=== PATIENT | female | born 1945 | race Caucasian/White ===

== ENCOUNTER 2016-09-12 14:40 | Outpatient (CLI) | END 2016-09-12 14:41 | disposition home or self-care (01) ==

== ENCOUNTER 2016-11-08 13:39 | Outpatient (CLI) | payer MEDICARE, OTHER | END 2016-11-08 13:40 | disposition home or self-care (01) | DX: E11.9 Type 2 diabetes mellitus without complications (principal); I25.10 Atherosclerotic heart disease of native coronary artery without angina pectoris; I10 Essential (primary) hypertension ==

== ENCOUNTER 2017-02-10 07:26 | Outpatient (CLI) | payer MEDICARE, OTHER ==
[2017-02-10 11:22] LABS: BASOPHILS # (AUTO) 0.1 10^3/uL (0.0-0.1); BASOPHILS % (AUTO) 0.4 %; EOSINOPHILS # (AUTO) 0.4 10^3/uL (0.0-0.7); HCT - HEMATOCRIT 34.6 % (37.0-47.0); HGB - HEMOGLOBIN 11.1 g/dL (12.0-16.0); LYMPHOCYTES # (AUTO) 2.7 10^3/uL (1.5-3.5); LYMPHOCYTES % (AUTO) 22.2 %; MEAN CORPUSCULAR HEMOGLOBIN 26.4 pg (27.0-31.0); MEAN CORPUSCULAR HGB CONC 32.2 g/dL (32.0-36.0); MEAN CORPUSCULAR VOLUME 82.1 fL (81.0-99.0); MEAN PLATELET VOLUME 11.8 fL (7.9-10.8); MONOCYTES # (AUTO) 0.6 10^3/uL (0.0-1.0); MONOCYTES % (AUTO) 4.7 %; NEUTROPHILS # (AUTO) 8.4 10^3/uL (1.5-6.6); NEUTROPHILS % (AUTO) 69.7 %; RED BLOOD COUNT 4.22 10^6/uL (4.20-5.40)
[2017-02-10 11:39] LABS: ALBUMIN/GLOBULIN RATIO 1.1 (1.0-2.2); BILIRUBIN,TOTAL 0.5 mg/dL (0.2-1.0); BUN - BLOOD UREA NITROGEN 33 mg/dL (6-20); CALCIUM 9.6 mg/dL (8.5-10.3); CARBON DIOXIDE - CO2 28 mmol/L (21-32); CHLORIDE 102 mmol/L (101-111); CHOLESTEROL 178 mg/dL; CREATININE 1.2 mg/dL (0.4-1.0); GFR - MDRD 44 (>89); GLUCOSE 119 mg/dL (70-100); HDL CHOLESTEROL 45 mg/dL; LDL/HDL RATIO 2.3 (<4.4); POTASSIUM 3.8 mmol/L (3.5-5.0); SODIUM 138 mmol/L (135-145); TRIGLYCERIDES 143 mg/dL; VLDL CHOLESTEROL 29 mg/dL
[2017-02-10 11:46] LABS: HEMOGLOBIN A1C 0.54 g/dL
== END 2017-02-10 07:27 | disposition home or self-care (01) ==
LOC: LAB.F 07:26
PROVIDERS: ATTEND Family Medicine
DX: I25.10 Atherosclerotic heart disease of native coronary artery without angina pectoris (principal); E11.9 Type 2 diabetes mellitus without complications; E55.9 Vitamin D deficiency, unspecified; D64.9 Anemia, unspecified; E78.5 Hyperlipidemia, unspecified; I10 Essential (primary) hypertension
CPT/HCPCS: 36415; 80053; 80061; 82043; 82306; 83036; 84443; 85025

== ENCOUNTER 2017-07-24 14:57 | Outpatient (CLI) | payer MEDICARE, OTHER ==
--- NOTE | 2017-07-28 14:02 | Mammography Report ---
DIGITAL SCREENING MAMMOGRAM: 07/24/2017 CLINICAL INDICATION: A 72-year-old with history of benign right breast biopsy, for screening. COMPARISON: 02/2015, 08/2012, 08/2011, 07/2010. TECHNIQUE: Routine CC and MLO projections were obtained of the breasts. FINDINGS: The breasts again demonstrate scattered fibroglandular densities bilaterally. Coarse and p unctate, typically benign calcifications are present. No suspicious masses, clustered microcalcificat ions, or regions of architectural distortion are identified. IMPRESSION: BENIGN FINDINGS. RECOMMENDATION: ROUTINE ANNUAL SCREENING UNLESS OTHERWISE CLINICALLY INDICATED. BIRADS CATEGORY 2-BENIGN FINDINGS. STANDARD QUALIFYING STATEMENTS 1. This examination was reviewed with the aid of Computer-Aided Detection (CAD). 2. A negative or benign imaging report should not delay biopsy if clinically suspicious findings are present. Consider surgical consultation if warranted. More than 5% of cancers are not identified by i maging. 3. Dense breasts may obscure an underlying neoplasm. JOB #: [id number] EXT JOB #:[id number]
== END 2017-07-24 14:58 | disposition home or self-care (01) ==
LOC: DI 14:57
PROVIDERS: ATTEND Family Medicine
DX: Z12.31 Encounter for screening mammogram for malignant neoplasm of breast (principal)
CPT/HCPCS: 77067

== ENCOUNTER 2017-07-24 14:59 | Outpatient (CLI) | payer MEDICARE, OTHER ==
--- NOTE | 2017-07-25 16:30 | DEXA Report ---
DEXA SCAN: 07/24/2017 CLINICAL INDICATION: Postmenopausal. TECHNIQUE: Dual energy x-ray absorptiometry (DXA) was performed on a [employer] system. Regions measured are the AP spine, femoral neck, and, if needed, forearm. COMPARISON: None. In accordance with the International Society for Clinical Densitometry (ISCD) guidelines, data from previous exams may be reanalyzed using current recommendations and techniques. This is done to allow a more accurate basis for comparison with the current study. FINDINGS LUMBAR SPINE DATA: REGION BMD (g/cm/cm) T-SCORE Z-SCORE L1 1.425 2.5 3.6 L2 1.524 2.7 3.9 L3 1.630 3.6 4.8 TOTAL L1-L3 1.533 3.0 4.2 NOTE: All evaluable vertebrae are used for classification. HIP DATA: REGION BMD (g/cm/cm) T-SCORE Z-SCORE Neck 1.143 0.8 2.2 TOTAL 1.197 1.5 2.8 NOTE: The femoral neck or total proximal femur, whichever is lowest, is used for classification. IMPRESSION 1. THE WHO CLASSIFICATION BASED ON THE INTERNATIONAL REFERENCE STANDARD: NORMAL. FRACTURE RISK: NOT INCREASED. 2. L4 WAS EXCLUDED DUE TO PREVIOUS SURGERY AT L4-5. RECOMMENDATION: Patients with diagnosis of osteoporosis or osteopenia should have regular bone mineral density assessment. For those eligible for Medicare, routine testing is allowed once every 2 years. Testing frequency can be increased for patients who have rapidly progressing disease or for those who are receiving medical therapy to restore bone mass. COMMENT: World Health Organization (WHO) definitions for osteoporosis and osteopenia: NORMAL BMD: T-score at -1.0 or higher, fracture risk is low. OSTEOPENIA BMD: T-score between -1.0 and -2.5, fracture risk is increased. OSTEOPOROSIS BMD: T-score at -2.5 or lower, fracture risk high. National Osteoporosis Foundation recommends: 1. Obtain adequate dietary calcium (at least 1200 mg per day) and vitamin D (400 -800 international units per day). 2. Participate, as appropriate, in regular weightbearing and muscle- strengthening exercise. 3. Avoid tobacco use and reduce alcohol and caffeine intake. 4. For more detailed information see the website at www.NOF.org. MTDD
== END 2017-07-24 15:00 | disposition home or self-care (01) ==
LOC: DI 14:59
PROVIDERS: ATTEND Family Medicine
DX: Z78.0 Asymptomatic menopausal state (principal)
CPT/HCPCS: 77080

== ENCOUNTER 2017-08-08 13:31 | Outpatient (CLI) | payer MEDICARE, OTHER | END 2017-08-08 13:32 | disposition EMS.NT | LOC: EMS 13:31 | PROVIDERS: ATTEND Surgery | DX: R41.82 Altered mental status, unspecified (principal) ==

== ENCOUNTER 2017-08-14 07:39 | Outpatient (CLI) | payer MEDICARE, OTHER ==
[2017-08-14 12:29] LABS: CALCIUM 9.3 mg/dL (8.5-10.3); CREATININE 0.9 mg/dL (0.4-1.0); POTASSIUM 3.7 mmol/L (3.5-5.0)
[2017-08-14 12:48] LABS: HEMOGLOBIN A1C 0.54 g/dL
== END 2017-08-14 07:40 | disposition home or self-care (01) ==
LOC: LAB.F 07:39
PROVIDERS: ATTEND Family Medicine
DX: E11.9 Type 2 diabetes mellitus without complications (principal); I10 Essential (primary) hypertension
CPT/HCPCS: 36415; 80048; 83036

== ENCOUNTER 2017-11-14 07:20 | Outpatient (CLI) | payer MEDICARE, OTHER ==
[2017-11-14 11:31] LABS: ALBUMIN 3.5 g/dL (3.2-5.5); ALBUMIN/GLOBULIN RATIO 1.1 (1.0-2.2); ALKALINE PHOSPHATASE 48 IU/L (42-121); ALT ALANINE AMINOTRANSFERASE 16 IU/L (10-60); AST ASPARTATE AMINOTRANSFERASE 18 IU/L (10-42); BILIRUBIN,TOTAL 0.4 mg/dL (0.2-1.0); BUN - BLOOD UREA NITROGEN 23 mg/dL (6-20); CALCIUM 9.1 mg/dL (8.5-10.3); CARBON DIOXIDE - CO2 28 mmol/L (21-32); CHLORIDE 101 mmol/L (101-111); CHOL/HDL RATIO 3.5 (<4.4); CHOLESTEROL 163 mg/dL; CREATININE 0.9 mg/dL (0.4-1.0); GFR - MDRD 61 (>89); GLUCOSE 110 mg/dL (70-100); HDL CHOLESTEROL 46 mg/dL; LDL CHOLESTEROL,CALCULATED 92 mg/dL; SODIUM 138 mmol/L (135-145); TOTAL PROTEIN 6.8 g/dL (6.7-8.2); VLDL CHOLESTEROL 25 mg/dL
[2017-11-14 12:07] LABS: HB2 TOTAL 11.6 g/dL; HEMOGLOBIN A1C 0.59 g/dL; HEMOGLOBIN A1C % 6.8 % (4.6-6.2)
== END 2017-11-14 07:21 | disposition home or self-care (01) ==
LOC: LAB.F 07:20
PROVIDERS: ATTEND Family Medicine
DX: E11.9 Type 2 diabetes mellitus without complications (principal); I10 Essential (primary) hypertension; I25.10 Atherosclerotic heart disease of native coronary artery without angina pectoris; I35.0 Nonrheumatic aortic (valve) stenosis
CPT/HCPCS: 36415; 80053; 80061; 82043; 83036; 83721

== ENCOUNTER 2018-02-16 07:54 | Outpatient (CLI) | payer MEDICARE, OTHER ==
[2018-02-16 12:42] LABS: CALCIUM 9.4 mg/dL (8.5-10.3); CREATININE 0.8 mg/dL (0.4-1.0)
[2018-02-16 12:44] LABS: HB2 TOTAL 11.8 g/dL; HEMOGLOBIN A1C 0.65 g/dL; HEMOGLOBIN A1C % 7.2 % (4.6-6.2)
== END 2018-02-16 07:55 | disposition home or self-care (01) ==
LOC: LAB.F 07:54
PROVIDERS: ATTEND Family Medicine
DX: E11.9 Type 2 diabetes mellitus without complications (principal); I10 Essential (primary) hypertension; I35.0 Nonrheumatic aortic (valve) stenosis
CPT/HCPCS: 36415; 80048; 83036

== ENCOUNTER 2021-08-10 22:00 | Emergency (ER) | payer MEDICARE, OTHER ==
--- NOTE | 2021-08-10 23:52 | Ultrasound Report ---
PROCEDURE: Duplex Ext Veins Left INDICATIONS: L knee discoloration and swelling TECHNIQUE: Real-time imaging, as well as color and pulse Doppler interrogation, were performed of the lower extr emity deep veins from the inguinal ligament to the popliteal fossa. COMPARISON: None. FINDINGS: The deep veins are normally compressible, and free of intraluminal thrombus. Color and pu lse Doppler demonstrate normal phasic intraluminal flow. There is normal augmentation response to di stal compression maneuver. No significant sonographic abnormality is seen in the area of discoloration. IMPRESSION: No sonographic evidence of deep venous thrombosis in the left lower extremity. Reviewed by: Garo Graves MD on 08/10/2021 11:51 PM PST Approved by: Garo Graves MD on 08/10/2021 11:51 PM PST Station ID: [id number]
--- NOTE | 2021-08-11 00:02 | ED Physician Documentation ---
History of Present Illness - Stated complaint Stated Complaint: L KNEE SWELLING/PX - Chief complaint Chief Complaint: Ext Problem - History obtained from History obtained from: Patient - Additonal information Additional information: 76-year-old woman presents with left knee pain after injuring it 10 days ago and a fall. She had improvement in the pain and has not been taking any Analgesics but then discovered a bruise and lump just above her knee and decided to come in due to concern about blood clots. No prior history of clots. Patient is on aspirin and Plavix. Ambulatory on the knee without difficulty. No calf pain. 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 : None HEENT: None Psych: None Musculoskeletal: None Derm: None - Past Surgical History Past Surgical History: Yes Ortho: Knee replacement, Rotator cuff repair, Carpal Tunnel surgery - Present Medications Home Medications: Ambulatory Orders Medication Instructions Recorded Confirmed Felodipine [Plendil] 10 mg PO DAILY 09/01/13 11/25/15 Insulin Glargine,Hum.rec.anlog 28 unit SQ DAILY 09/01/13 11/25/15 [Lantus Solostar] Losartan/Hydrochlorothiazide 1 mg PO DAILY 09/01/13 11/25/15 [Losartan-Hctz 100-25 mg Tab] Metformin HCl 500 mg PO BID 09/01/13 11/25/15 Omeprazole 20 mg PO BID 09/01/13 11/25/15 Potassium Citrate [Urocit-K] 10 meq PO BID 09/01/13 11/25/15 Simvastatin [Zocor] 40 mg PO QPM 09/01/13 11/25/15 glipiZIDE [Glipizide] 5 mg PO BID 09/01/13 11/25/15 Aspirin Chewable [[place] 81 mg PO DAILY 02/07/15 11/25/15 Aspirin] Metoprolol Tartrate [Lopressor] 50 mg PO DAILY 02/07/15 11/25/15 - Allergies Allergies/Adverse Reactions: Allergies Allergy/AdvReac Type Severity Reaction Status Date / Time mercury (elemental) Allergy Unknown Verified 08/10/21 22:07 [Mercury (Elemental)] - Social History Does the pt smoke?: No Smoking Status: Never smoker Does the pt drink ETOH?: No Does the pt have substance abuse?: No - Immunizations Immunizations are current?: No Immunizations: TDAP >10years/unknown - POLST Patient has POLST: No PD ED PE NORMAL - Vitals Vital signs reviewed: Yes - General General: Alert and oriented X 3, No acute distress, Well developed/nourished - HEENT HEENT: Atraumatic, PERRL, EOMI - Derm Derm: Normal color, Warm and dry, Other (Ecchymosis to left medial knee with underlying palpable mass about 2 cm in size.) - Extremities Extremities: Normal ROM s pain, Other (2+ BL dp pulses. normal cap refill, sensation, movement) - Neuro Neuro: No motor deficit, No sensory deficit Results - Vitals Vitals: Vital Signs - 24 hr 08/10/ 22:02 Temperature 36.4 C L Heart Rate 92 Respiratory 14 Rate Blood Pressure 171/62 H O2 Saturation 100 Oxygen O2 Source Room air PD MEDICAL DECISION MAKING - ED course ED course: Patient without DVT on ultrasound. Normal range of motion of the knee, weightbearing appropriately, no bony tenderness. Advised patient to have follow- up ultrasound done in 1 week. Return precautions given. Departure - Departure Disposition: 01 Home, Self Care Clinical Impression: Ecchymosis, Knee pain Condition: Good Instructions: ED [place] Comments: You were seen in the emergency department for knee pain and bruising. The ultrasound study for DVT was negative, but you need to have a repeat ultrasound DVT study done in 1 week in order to confirm. Please have that ordered by your primary doctor. Return to the emergency department if you have any new or worsening symptoms or other concerns.
[2021-08-11 00:08] VITALS: BP 163/85
== END 2021-08-11 00:08 | disposition home or self-care (01) ==
LOC: ED 22:00
DX: M25.562 Pain in left knee (principal); R58 Hemorrhage, not elsewhere classified; I10 Essential (primary) hypertension; E11.9 Type 2 diabetes mellitus without complications; Z79.4 Long term (current) use of insulin
CPT/HCPCS: 99281; 99284

== ENCOUNTER 2022-04-09 00:26 | Emergency (ER) | payer MEDICARE, OTHER ==
[2022-04-09] MEDS ORDERED: SODIUM CHLORIDE 0.9% 500 ML IV STA (00:45)
[2022-04-09] MEDS ORDERED: MECLIZINE 12.5 MG TABLET PO STA (00:46)
[2022-04-09 00:59] LABS: BASOPHILS # (AUTO) 0.1 10^3/uL (0.0-0.1); BASOPHILS % (AUTO) 0.5 %; EOSINOPHILS # (AUTO) 0.2 10^3/uL (0.0-0.7); EOSINOPHILS % (AUTO) 1.8 %; HCT - HEMATOCRIT 31.1 % (37.0-47.0); HGB - HEMOGLOBIN 10.2 g/dL (12.0-16.0); LYMPHOCYTES # (AUTO) 1.6 10^3/uL (1.5-3.5); LYMPHOCYTES % (AUTO) 14.7 %; MEAN CORPUSCULAR HEMOGLOBIN 27.9 pg (27.0-31.0); MEAN CORPUSCULAR HGB CONC 32.8 g/dL (32.0-36.0); MONOCYTES # (AUTO) 0.6 10^3/uL (0.0-1.0); MONOCYTES % (AUTO) 5.6 %; NEUTROPHILS # (AUTO) 8.5 10^3/uL (1.5-6.6); NEUTROPHILS % (AUTO) 77.1 %; PLT - PLATELET COUNT 193 10^3/uL (130-450); RED BLOOD COUNT 3.66 10^6/uL (4.20-5.40); RED CELL DISTRIBUTION WIDTH 14.3 % (12.0-15.0)
[2022-04-09 01:09] LABS: ALBUMIN 3.7 g/dL (3.2-5.5); ALBUMIN/GLOBULIN RATIO 1.2 (1.0-2.2); BILIRUBIN,TOTAL 0.7 mg/dL (0.2-1.0); CREATININE 1.1 mg/dL (0.4-1.0); POTASSIUM 3.2 mmol/L (3.5-5.0); TOTAL PROTEIN 6.7 g/dL (6.7-8.2)
--- NOTE | 2022-04-09 01:28 | XRAY Report ---
PROCEDURE: Chest 1 View X-Ray INDICATIONS: Chest pain TECHNIQUE: One view of the chest was acquired. COMPARISON: 11/25/15 FINDINGS: Surgical changes and devices: None. Lungs and pleura: No pleural effusions or pneumothorax. Lungs are clear. Mediastinum: Mediastinal contours appear normal. Heart size is normal. Bones and chest wall: No suspicious bony lesions. Overlying soft tissues appear unremarkable. IMPRESSION: 1. No acute cardiopulmonary disease. Reviewed by: Darren Valerio MD on 04/09/2022 1:27 AM PDT Approved by: Darren Valerio MD on 04/09/2022 1:27 AM PDT Station ID: [id number]
[2022-04-09] MEDS ORDERED: POTASSIUM CHLORIDE 20 MEQ TABLET PO STA (02:07)
[2022-04-09 02:48] VITALS: BP 150/55
--- NOTE | 2022-04-09 02:48 | ED Physician Documentation ---
History of Present Illness - Stated complaint Stated Complaint: VERTIGO - Chief complaint Chief Complaint: Neuro - History obtained from History obtained from: Patient - Additonal information Additional information: Patient is a 77-year-old female with a history of vertigo presenting for evaluation of feeling dizzy this evening starting approximately 1 hour ago. Patient was lying down in bed and Woke up with a spinning sensation. She had associated nausea and an episode of emesis and a loose stool. She did not fall or hit her head. Her symptoms have improved. She reports this feels similar to when she had vertigo approximately 10 years ago. She is not currently on any medications for it. She does report recently having some nausea and an episode of emesis in the morning but does feel that she has been otherwise tolerating p.o. She denies headache, blurred vision, focal weakness or abnormal speech, chest pain, trouble breathing, abdominal pain, dysuria. She was given Zofran in route and her nausea has improved. Review of Systems Constitutional: denies: Fever Nose: denies: Congestion Throat: denies: Sore throat Cardiac: denies: Chest pain / pressure Respiratory: denies: Dyspnea GI: reports: Nausea. denies: Abdominal Pain : denies: Dysuria Skin: denies: Rash Musculoskeletal: denies: Neck pain, Back pain Neurologic: reports: Other (Dizziness). 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 : None HEENT: None Psych: None Musculoskeletal: None Derm: None Other Past Medical History: Hx of Vertigo - Past Surgical History Past Surgical History: Yes Ortho: Knee replacement, Rotator cuff repair, Carpal Tunnel surgery - Present Medications Home Medications: Ambulatory Orders Medication Instructions Recorded Confirmed Felodipine [Plendil] 10 mg PO DAILY 09/01/13 04/09/22 Insulin Glargine,Hum.rec.anlog 28 unit SQ DAILY 09/01/13 04/09/22 [Lantus Solostar] Losartan/Hydrochlorothiazide 1 mg PO DAILY 09/01/13 04/09/22 [Losartan-Hctz 100-25 mg Tab] Metformin HCl 500 mg PO BID 09/01/13 04/09/22 Potassium Citrate [Urocit-K] 10 meq PO BID 09/01/13 04/09/22 Simvastatin [Zocor] 40 mg PO QPM 09/01/13 04/09/22 glipiZIDE [Glipizide] 5 mg PO BID 09/01/13 04/09/22 Aspirin Chewable [[place] 81 mg PO DAILY 02/07/15 04/09/22 Aspirin] Metoprolol Tartrate [Lopressor] 50 mg PO DAILY 02/07/15 04/09/22 Clopidogrel [Plavix] 75 mg PO DAILY 04/09/22 04/09/22 Meclizine HCl [Motion Sickness] 25 mg PO Q6H PRN #20 tablet 04/09/22 Ondansetron Odt [Zofran] 4 mg TL Q6H PRN #10 tablet 04/09/22 Semaglutide [Ozempic] 0.5 mg SQ 04/09/22 cilostazoL [Cilostazol] 50 mg PO DAILY 04/09/22 04/09/22 - Allergies Allergies/Adverse Reactions: Allergies Allergy/AdvReac Type Severity Reaction Status Date / Time mercury (elemental) Allergy Unknown Verified 04/09/22 00:43 [Mercury (Elemental)] - Social History Does the pt smoke?: No Smoking Status: Never smoker Does the pt drink ETOH?: No Does the pt have substance abuse?: No - Immunizations Immunizations are current?: No Immunizations: TDAP >10years/unknown - POLST Patient has POLST: No PD ED PE NORMAL - General General: Alert and oriented X 3, No acute distress, Well developed/nourished - HEENT HEENT: Atraumatic, PERRL, EOMI (No nystagmus Or abnormal eye movements), Moist mucous membranes, Pharynx benign - Neck Neck: Supple, no meningeal sign, No bony TTP - Cardiac Cardiac: RRR, No murmur, Strong equal pulses - Respiratory Respiratory: No respiratory distress, Clear bilaterally - Abdomen Abdomen: Normal bowel sounds, Soft, Non tender, Non distended - Derm Derm: Warm and dry - Extremities Extremities: No edema - Neuro Neuro: Alert and oriented X 3, integration director 2-12 intact, No motor deficit, No sensory deficit, Normal speech, Other (Normal [id number] and rapid alternating movements bilaterally, normal gait) - Psych Psych: Normal mood Results - Vitals Vitals: Vital Signs - 24 hr 04/09/22 04/09/22 04/09/22 00:30 01:00 01:38 Temperature 36.0 C L Heart Rate 92 71 89 Respiratory 18 13 16 Rate Blood Pressure 133/68 H 133/68 H 150/58 H O2 Saturation 100 100 100 04/09/22 02:47 Temperature 36.3 C L Heart Rate 88 Respiratory 14 Rate Blood Pressure 150/55 H O2 Saturation 98 Oxygen O2 Source Room air - EKG (time done) 1234 Rate: Rate (enter#) (89) Rhythm: NSR Intervals: LBBB Ischemia: Other (Negative sgarbosa criteria). No: ST elevation c/w ischemia - Labs Labs: Laboratory Tests 04/09/22 04/09/22 04/09/22 00:51 00:51 00:51 WBC 11.0 H RBC 3.66 L Hgb 10.2 L Hct 31.1 L MCV 85.0 MCH 27.9 MCHC 32.8 RDW 14.3 Plt Count 193 MPV 12.0 H Neut # (Auto) 8.5 H Lymph # (Auto) 1.6 [place] # (Auto) 0.6 Eos # (Auto) 0.2 Baso # (Auto) 0.1 Absolute Nucleated RBC 0.00 Nucleated RBC % 0.0 Sodium 135 Potassium 3.2 L Chloride 99 L Carbon Dioxide 25 Anion Gap 11.0 BUN 27 H Creatinine 1.1 H Estimated GFR (MDRD) 48 L Glucose 143 H Calcium 9.0 Total Bilirubin 0.7 AST 20 ALT 17 Alkaline Phosphatase 46 Troponin I High Sens 9.8 Total Protein 6.7 Albumin 3.7 Globulin 3.0 Albumin/Globulin Ratio 1.2 Lipase 27 PD MEDICAL DECISION MAKING - ED course Complexity details: reviewed results, re-evaluated patient ED course: Patient presenting for evaluation of vertigo. Denies headache, focal weakness. Has no other findings to suggest cerebellar or posterior circulation stroke/ TIA/mass or dissection. Denies chest pain or difficulty breathing. Patient is essentially symptom-free here. Labs reassuring with mild hypokalemia. Patient is able to tolerate p.o. replacement. No abdominal tenderness noted on exam. She is ambulatory and feeling much better. She does have a history of vertigo and reports this feels similar to her previous episodes. Discussed medication options and need for close follow-up with primary care doctor. She is advised on return precautions. Departure - Departure Disposition: 01 Home, Self Care Clinical Impression: Vertigo Condition: Stable Instructions: Bundle Branch Block Left About, ED Vertigo Unspecified Prescriptions: Meclizine HCl [Motion Sickness] 25 mg PO Q6H PRN #20 tablet PRN Reason: Dizziness Ondansetron Odt [Zofran] 4 mg TL Q6H PRN #10 tablet PRN Reason: Nausea / Vomiting Comments: You were evaluated for dizziness which appears to be related to vertigo. Vertigo can have many causes.Your symptoms did improve by the time you were evaluated in the emergency department. You do not have any other symptoms to suggest a stroke. We did check labs which showed a slightly low potassium. Your EKG also showed an irregularity called a left bundle branch block. We do not have any recent EKGs and this may not be a new finding. 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 Please have close follow-up wi th your primary care doctor. I have sent prescriptions for meclizine and a nausea medication to [facility]. If you have any worsening symptoms please return to the emergency department. Discharge Date/Time: 04/09/22 02:56
== END 2022-04-09 02:56 | disposition home or self-care (01) ==
LOC: EDUNIT# → ED 00:26
DX: R42 Dizziness and giddiness (principal)
CPT/HCPCS: 36415; 71045; 80053; 83690; 84484; 85025; 93005; 96360; 99283; 99284; A9270

== ENCOUNTER 2022-09-06 08:00 | Outpatient (CLI) | payer MEDICARE, BC ==
[2022-09-06 18:25] LABS: BASOPHILS # (AUTO) 0.1 10^3/uL (0.0-0.1); BASOPHILS % (AUTO) 0.4 %; EOSINOPHILS # (AUTO) 0.2 10^3/uL (0.0-0.7); EOSINOPHILS % (AUTO) 1.8 %; HCT - HEMATOCRIT 33.9 % (37.0-47.0); HGB - HEMOGLOBIN 10.9 g/dL (12.0-16.0); LYMPHOCYTES # (AUTO) 2.1 10^3/uL (1.5-3.5); LYMPHOCYTES % (AUTO) 18.8 %; MEAN CORPUSCULAR HEMOGLOBIN 28.5 pg (27.0-31.0); MEAN CORPUSCULAR HGB CONC 32.2 g/dL (32.0-36.0); MEAN CORPUSCULAR VOLUME 88.7 fL (81.0-99.0); MEAN PLATELET VOLUME 12.6 fL (7.9-10.8); MONOCYTES # (AUTO) 0.7 10^3/uL (0.0-1.0); MONOCYTES % (AUTO) 6.4 %; NEUTROPHILS # (AUTO) 8.1 10^3/uL (1.5-6.6); NEUTROPHILS % (AUTO) 72.3 %; PLT - PLATELET COUNT 248 10^3/uL (130-450); RED BLOOD COUNT 3.82 10^6/uL (4.20-5.40); RED CELL DISTRIBUTION WIDTH 13.8 % (12.0-15.0); WHITE BLOOD COUNT 11.2 x10^3/uL (4.8-10.8)
[2022-09-06 18:47] LABS: ALBUMIN 3.8 g/dL (3.2-5.5); ALBUMIN/GLOBULIN RATIO 1.1 (1.0-2.2); BILIRUBIN,TOTAL 0.5 mg/dL (0.2-1.0); CALCIUM 9.6 mg/dL (8.5-10.3); CREATININE 1.1 mg/dL (0.4-1.0); TOTAL PROTEIN 7.4 g/dL (6.7-8.2)
[2022-09-06 19:02] LABS: THYROID STIMULATING HORMONE 1.96 uIU/mL (0.34-5.60)
[2022-09-06 22:21] LABS: ESTIMATED AVERAGE GLUCOSE 146 mg/dL (70-100); HEMOGLOBIN A1c% 6.7 % (4.27-6.07)
== END 2022-09-06 23:59 | disposition home or self-care (01) ==
LOC: LAB.N 08:00
PROVIDERS: ATTEND Family Medicine
DX: E11.9 Type 2 diabetes mellitus without complications (principal); R19.7 Diarrhea, unspecified
CPT/HCPCS: 36415; 80053; 83036; 84443; 85025; 87045; 87046; 87329; 87427; 87493

== ENCOUNTER 2024-04-06 23:27 | Emergency (ER) | payer BC, MEDICARE ==
[2024-04-06 23:57] LABS: BASOPHILS # (AUTO) 0.1 10^3/uL (0.0-0.1); BASOPHILS % (AUTO) 0.6 %; BILIRUBIN,URINE NEGATIVE (NEGATIVE); EOSINOPHILS # (AUTO) 0.3 10^3/uL (0.0-0.7); EOSINOPHILS % (AUTO) 3.1 %; GLUCOSE, URINE (UA) NEGATIVE (NEGATIVE); HCT - HEMATOCRIT 36.3 % (37.0-47.0); HGB - HEMOGLOBIN 11.8 g/dL (12.0-16.0); KETONES,URINE (UA) NEGATIVE (NEGATIVE); LEUKOCYTE ESTERASE, URINE SMALL (NEGATIVE); LYMPHOCYTES # (AUTO) 2.4 10^3/uL (1.5-3.5); LYMPHOCYTES % (AUTO) 22.9 %; MEAN CORPUSCULAR HEMOGLOBIN 28.3 pg (27.0-31.0); MEAN CORPUSCULAR HGB CONC 32.5 g/dL (32.0-36.0); MEAN CORPUSCULAR VOLUME 87.1 fL (81.0-99.0); MEAN PLATELET VOLUME 11.6 fL (7.9-10.8); MONOCYTES # (AUTO) 0.8 10^3/uL (0.0-1.0); MONOCYTES % (AUTO) 7.5 %; NEUTROPHILS # (AUTO) 6.9 10^3/uL (1.5-6.6); NEUTROPHILS % (AUTO) 65.5 %; NITRITE,URINE NEGATIVE (NEGATIVE); OCCULT BLOOD,URINE SMALL (NEGATIVE); PH,URINE 6.5 PH (5.0-7.5); PLT - PLATELET COUNT 230 10^3/uL (130-450); PROTEIN,URINE TRACE mg/dL (NEGATIVE); RED BLOOD COUNT 4.17 10^6/uL (4.20-5.40); RED CELL DISTRIBUTION WIDTH 12.9 % (12.0-15.0); UROBILINOGEN,URINE 0.2 (NORMAL) E.U./dL (NORMAL); WHITE BLOOD COUNT 10.6 x10^3/uL (4.8-10.8)
[2024-04-07 00:08] LABS: BACTERIA,URINE Few /HPF (None Seen); CLARITY,URINE SL. CLOUDY (CLEAR); RBC,URINE 0-5 /HPF (0-5); SQUAMOUS EPITHELIAL CELL,UR MOD Squamous (<= Few)
[2024-04-07 00:15] LABS: ALBUMIN 4.4 g/dL (3.2-5.5); ALBUMIN/GLOBULIN RATIO 1.3 (1.0-2.2); BILIRUBIN,TOTAL 0.6 mg/dL (0.2-1.0); CALCIUM 10.5 mg/dL (8.5-10.3); CREATININE 1.2 mg/dL (0.6-1.3); POTASSIUM 3.3 mmol/L (3.5-4.5); TOTAL PROTEIN 7.7 g/dL (6.4-8.9)
--- NOTE | 2024-04-07 00:16 | ED Physician Documentation ---
History of Present Illness - Stated complaint Stated Complaint: DIZZY - Chief complaint Chief Complaint: Neuro - History obtained from History obtained from: Patient - Additonal information Additional information: HPI from patient. c/o dizziness with unsteady gait. this initially began suddenly yesterday while driving; before reaching her destination she had sudden onset of this dizziness and thus turned around and drove back home. upon returning home and ambulating into the house, her dizziness worsened with ambulation which caused her to feel unsteady ambulating. with rest the symptoms improved and then resolved until tonight when it suddenly recurred. she denies headache, weakness, numbness, visual changes. denies chest pain, dyspnea. she says this does not feel like these episodes are similar to previous of vertigo she has had. she describes distinct worsening with movement of head and ambulation, rapid improvement with rest, keeping head still, closing eyes. 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 : None HEENT: None Psych: None Musculoskeletal: None Derm: None - Past Surgical History Past Surgical History: Yes Ortho: Knee replacement, Rotator cuff repair, Carpal Tunnel surgery - Present Medications Home Medications: Ambulatory Orders Medication Instructions Recorded Confirmed Felodipine [Plendil] 10 mg PO DAILY 09/01/13 04/09/22 Insulin Glargine,Hum.rec.anlog 28 unit SQ DAILY 09/01/13 04/09/22 [Lantus Solostar] Losartan/Hydrochlorothiazide 1 mg PO DAILY 09/01/13 04/09/22 [Losartan-Hctz 100-25 mg Tab] Metformin HCl 500 mg PO BID 09/01/13 04/09/22 Potassium Citrate [Urocit-K] 10 meq PO BID 09/01/13 04/09/22 Simvastatin [Zocor] 40 mg PO QPM 09/01/13 04/09/22 glipiZIDE [Glipizide] 5 mg PO BID 09/01/13 04/09/22 Aspirin Chewable [[place] 81 mg PO DAILY 02/07/15 04/09/22 Aspirin] Metoprolol Tartrate [Lopressor] 50 mg PO DAILY 02/07/15 04/09/22 Clopidogrel [Plavix] 75 mg PO DAILY 04/09/22 04/09/22 Meclizine HCl [Motion Sickness] 25 mg PO Q6H PRN #20 tablet 04/09/22 Ondansetron Odt [Zofran] 4 mg TL Q6H PRN #10 tablet 04/09/22 Semaglutide [Ozempic] 0.5 mg SQ 04/09/22 cilostazoL [Cilostazol] 50 mg PO DAILY 04/09/22 04/09/22 Meclizine [Antivert] 25 mg PO Q6H PRN #20 tablet 04/07/24 Ondansetron Odt [Zofran Odt] 4 mg TL Q6H PRN #10 tablet 04/07/24 - Allergies Allergies/Adverse Reactions: Allergies Allergy/AdvReac Type Severity Reaction Status Date / Time mercury (elemental) Allergy Unknown Verified 04/06/24 23:41 [Mercury (Elemental)] - Social History Does the pt smoke?: No Smoking Status: Never smoker Does the pt drink ETOH?: No Does the pt have substance abuse?: No - Immunizations Immunizations are current?: No Immunizations: TDAP >10years/unknown - POLST Patient has POLST: No PD ED PE NORMAL - Vitals Vital signs reviewed: Yes - General General: Alert and oriented X 3, No acute distress, Well developed/nourished - HEENT HEENT: PERRL, EOMI, Moist mucous membranes, Other (several beats of nystgmus with leftward gaze ) - Neck Neck: Supple, no meningeal sign, No bruit - Cardiac Cardiac: RRR, No murmur - Respiratory Respiratory: No respiratory distress, Clear bilaterally - Abdomen Abdomen: Soft, Non tender - Derm Derm: Normal color - Neuro Neuro: Alert and oriented X 3, 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, No motor deficit, No sensory deficit, Normal speech Eye Opening: Spontaneous Motor: Obeys Commands Verbal: Oriented GCS Score: 15 Results - Vitals Vitals: Vital Signs - 24 hr 04/06/24 04/06/24 04/07/24 23:35 23:41 01:05 Temperature 36.3 C L Heart Rate 80 74 79 Respiratory 18 16 16 Rate Blood Pressure 169/54 H 175/89 H 145/90 H O2 Saturation 100 99 99 04/07/24 03:00 Temperature 36.5 C Heart Rate 86 Respiratory 17 Rate Blood Pressure 154/89 H O2 Saturation 98 Oxygen O2 Source Room air - EKG (time done) No standard instances EKG releavant findings:: EKG personally interpreted by author of this note. Relevant findings are: Rate: Rate (enter#) (79) Rhythm: NSR Intervals: LBBB Ischemia: Non specific changes (likely due to IVCD; does not meet Sgarbossa criteria) Compare to prior EKG: Unchanged from prior EKG - Labs Labs: Laboratory Tests 04/06/24 04/06/24 04/06/24 23:35 23:35 23:35 WBC 10.6 RBC 4.17 L Hgb 11.8 L Hct 36.3 L MCV 87.1 MCH 28.3 MCHC 32.5 RDW 12.9 Plt Count 230 MPV 11.6 H Neut # (Auto) 6.9 H Lymph # (Auto) 2.4 [place] # (Auto) 0.8 Eos # (Auto) 0.3 Baso # (Auto) 0.1 Absolute Nucleated RBC 0.00 Nucleated RBC % 0.0 Sodium 138 Potassium 3.3 L Chloride 102 Carbon Dioxide 27 Anion Gap 9.0 BUN 13 Creatinine 1.2 Estimated GFR (MDRD) 43 L Glucose 138 H Calcium 10.5 H Total Bilirubin 0.6 AST 14 ALT 12 Alkaline Phosphatase 76 Troponin I High Sens 12.7 Total Protein 7.7 Albumin 4.4 Globulin 3.3 Albumin/Globulin Ratio 1.3 Lipase 17 Urine Color LIGHT YELLOW Urine Clarity SL. CLOUDY Urine pH 6.5 Ur Specific [place] 1.010 Urine Protein TRACE Urine Glucose (UA) NEGATIVE Urine Ketones NEGATIVE Urine Occult Blood SMALL H Urine Nitrite NEGATIVE Urine Bilirubin NEGATIVE Urine Urobilinogen 0.2 (NORMAL) Ur Leukocyte Esterase SMALL H Urine RBC 0-5 Urine WBC 6-10 H Ur Squamous Epith Cells MOD Squamous H Urine Bacteria Few Urine Culture Comments NOT INDICATED - Rads (name of study) chest xray Relevant Findings:: Prelim report reviewed, See rad report CTH Relevant Findings:: Prelim report reviewed, See rad report PD Medical Decision Making - ED course Complexity details: reviewed old records, reviewed results, re-evaluated patient, considered differential, d/w patient ED course: no concerning nor diagnostic findings on CBC, ER abdominal panel, UA, EKG, CXR, CTH. The CTH was performed due to patient reporting fall approximately 2 weeks ago, shows me a picture with moderate facial/periorbial bruising from that time. while she has no c/o related to that incident, she is on clopidogrel and out of abundance of caution the CTH was performed to ensure no evidence of CT- demonstrable pathology related to her vertigo (suxh as a mass) and possibly from the fall (ICH such as SDH). unremarkable CTH (chronic changes/findings only). she is given 12.5 mg meclizine x 2 doses, 500 cc NS IV, and 4mg IV zofran. On reevaluation, results d/w patient. she reports improvement with these interventions and she tells me she feels comfortable with d/c home. H+P is c/w vertigo and no test results tonight suggest alternative diagnosis. CVA presenting as isolated vertigo would be very atypical (not ataxic on NIHSS (finger-nose, heel-haque) and thus her unsteady gait is likely a result of the vertigo rather than a central neurologic process). she says the difference from previous episodes of vertigo is the episodic nature (previously was persistent although I see an ED MD note in [place] [place] indicating she had resolution of symptoms with single dose of zofran). results d/w patient, return precautions reviewed. e-prescribed zofran, meclizine. advised to follow up with PCP, next available appointment, for reevaluation Departure - Departure Disposition: 01 Home, Self Care Clinical Impression: Dizziness Condition: Good Instructions: ED Dizziness UKO Prescriptions: Meclizine [Antivert] 25 mg PO Q6H PRN #20 tablet PRN Reason: Vertigo Ondansetron Odt [Zofran Odt] 4 mg TL Q6H PRN #10 tablet PRN Reason: Nausea / Vomiting Comments: There were no concerning nor diagnostic findings on tonight's test, including blood tests, EKG, chest xray, and CT scan of your head. While none of these test results indicate the cause of your symptoms, your symptom description is suggestive of vertigo and tests are typically normal with this diagnosis. Contact your primary care provider this morning when their office opens to arrange for the next available appointment for follow-up/reevaluation. Until your symptoms resolve, you should have someone next to you when ambulating (to prevent falls) and you should not drive until your symptoms have completely resolved for at least 24 hours Discharge Date/Time: 04/07/24 03:25 NIHSS - Level of Consciousness Level of consciousness: (0) Alert, Keenly responsive LOC Questions: (0) Answers both Q's correct LOC Commands: (0) Performs both correctly - Gaze Best Gaze: (0) Normal - Visual Visual: (0) No loss - Facial Palsy Facial Palsy: (0) Normal, symmetrical movement - Motor Arms (both separate) Motor Arm (right): (0) No drift Motor Arm (left): (0) No drift - Motor Legs (both separate) Motor Leg (right): (0) No drift Motor Leg (left): (0) No drift - Limb Ataxia Limb Ataxia: (0) Absent - Sensory Sensory: (0) Normal - Best Language Best Language: (0) No aphasia - Dysarthria Dysarthria: (0) Normal - Extinction and Inattention (formally neg Extinction and inattention: (0) No abnormality - Total Score/Results Total Score/Result: 0
[2024-04-07 00:17] LABS: TROPONIN I HIGH SENSITIVITY 12.7 ng/L (2.3-14.8)
--- NOTE | 2024-04-07 00:46 | XRAY Report ---
PROCEDURE: Chest 1V INDICATIONS: dizzy TECHNIQUE: One view of the chest was acquired. COMPARISON: Chest radiographs 04/09/2022. FINDINGS: Surgical changes and devices: Postsurgical changes at the acromioclavicular joints bilaterally. Lungs and pleura: No pleural effusions or pneumothorax. Lungs are clear. Mediastinum: Mediastinal contours appear normal. Heart size is normal. Bones and chest wall: No suspicious bony lesions. Overlying soft tissues appear unremarkable. IMPRESSION: No acute cardiopulmonary process. Reviewed by: Garo Graves MD on 04/07/2024 12:44 AM PDT Approved by: Garo Graves MD on 04/07/2024 12:44 AM PDT Station ID: [id number]
[2024-04-07] MEDS: ONDANSETRON 4 MG/2 ML VIAL IVP STA (01:00)
[2024-04-07] MEDS: MECLIZINE 12.5 MG TABLET PO STA ×2 (01:03→02:40)
--- NOTE | 2024-04-07 01:05 | CT Report ---
PROCEDURE: Head WO INDICATIONS: dizziness TECHNIQUE: Noncontrast 4.5 mm thick angled axial sections acquired from the foramen magnum to the vertex. For r adiation dose reduction, the following was used: automated exposure control, adjustment of mA and/or kV according to patient size. COMPARISON: CT head 02/08/2015. FINDINGS: Image quality: Excellent. CSF spaces: Basal cisterns are patent. No extra-axial fluid collections. Ventricles are symmetric in size and shape. Brain: No midline shift. No intracranial masses or hemorrhage. Moderate hypodensities in the subcor tical and periventricular white matter are most commonly seen in setting of chronic microvascular isc hemic changes. Age-related cerebral and cerebellar volume loss is seen. Intracranial vascular calcifi cations are noted in the internal carotid arteries. Skull and face: Calvarium and visualized facial bones are intact, without suspicious lesions. Sinuses: Visualized sinuses and mastoids are clear. IMPRESSION: 1.No acute intracranial pathology. 2.Moderate chronic microvascular ischemic changes and generalized parenchymal volume loss. Reviewed by: Garo Graves MD on 04/07/2024 1:04 AM PDT Approved by: Garo Graves MD on 04/07/2024 1:04 AM PDT Station ID: [id number]
[2024-04-07] MEDS: SODIUM CHLORIDE 0.9% 500 ML IV STA (02:40)
[2024-04-07 03:32] VITALS: BP 154/89; O2SAT 98
== END 2024-04-07 03:25 | disposition home or self-care (01) ==
LOC: ED 23:27
DX: R42 Dizziness and giddiness (principal); I10 Essential (primary) hypertension; E78.00 Pure hypercholesterolemia, unspecified; E11.9 Type 2 diabetes mellitus without complications; Z79.899 Other long term (current) drug therapy; Z79.4 Long term (current) use of insulin; Z79.84 Long term (current) use of oral hypoglycemic drugs; Z79.82 Long term (current) use of aspirin; Z79.02 Long term (current) use of antithrombotics/antiplatelets
CPT/HCPCS: 36415; 70450; 71045; 80053; 81001; 83690; 84484; 85025; 93005; 99284; A9270; 87086

== ENCOUNTER 2024-07-27 16:25 | Inpatient (IN) ==
[2024-07-27] MEDS ORDERED: iohexoL-300 100 ML VIAL ONE (16:28)
--- NOTE | 2024-07-27 16:30 | ED Physician Documentation ---
PD HPI FOCAL NEURO Stated complaint Stated Complaint: TIA Chief complaint Chief Complaint: Neuro History obtained from History obtained from: Patient and Family Additional information Additional information: She presents by ambulance. She has a history of hypertension, hypercholesterolemia, type 2 diabetes and some sort of valvular heart issue and does take Plavix. At 330 today she started to have slurred speech and word finding difficulties. Initial report was that lasted 5 minutes. On arrival she is seen in the hallway on the gurney immediately by me. Patient is not convinced her symptoms are all gone. Clarified from paramedics, last known well was when her left for an appointment at 1:30 PM and then came home at 3:30 PM and noted the symptoms. Meds/Allgy Home Medications Ambulatory Orders Medication Instructions Recorded Confirmed felodipine 5 mg tablet,extended 10 mg PO DAILY 09/01/13 04/09/22 release 24 hr glipizide 5 mg tablet 5 mg PO BID 09/01/13 04/09/22 insulin glargine 100 unit/mL (3 28 unit SQ DAILY 09/01/13 04/09/22 mL) subcutaneous pen (Lantus Solostar U-100 Insulin) losartan 100 1 mg PO DAILY 09/01/13 04/09/22 mg-hydrochlorothiazide 25 mg tablet metformin 850 mg tablet 500 mg PO BID 09/01/13 04/09/22 potassium citrate 10 mEq (1,080 10 meq PO BID 09/01/13 04/09/22 mg) tablet,extended release (Urocit-K 10) simvastatin 20 mg tablet 40 mg PO QPM 09/01/13 04/09/22 aspirin 81 mg chewable tablet 81 mg PO DAILY 02/07/15 04/09/22 metoprolol tartrate 50 mg tablet 50 mg PO DAILY 02/07/15 04/09/22 cilostazol 50 mg tablet 50 mg PO DAILY 04/09/22 04/09/22 clopidogrel 75 mg tablet 75 mg PO DAILY 04/09/22 04/09/22 meclizine 25 mg tablet (Motion 25 mg PO Q6H PRN Dizziness #20 tabs 04/09/22 Sickness (meclizine)) ondansetron 4 mg disintegrating 4 mg translingual Q6H PRN Nausea / 04/09/22 tablet Vomiting #10 tabs semaglutide 0.25 mg or 0.5 mg (2 0.5 mg SQ 04/09/ mg/1.5 mL) subcutaneous pen injector (Ozempic) meclizine 12.5 mg tablet 25 mg (2 x 12.5 mg) PO Q6H PRN 04/07/24 Vertigo #20 tabs ondansetron 4 mg disintegrating 4 mg translingual Q6H PRN Nausea / 04/07/24 tablet Vomiting #10 tabs Allergies Allergies Allergy/AdvReac Type Severity Reaction Status Date / Time mercury (elemental) (Mercury Allergy Unknown Verified 07/27/24 16:47 (Elemental)) [facility] Medical History Medical History (Updated 07/27/24 @ 17:08 by Zachary Dixon MD) HTN (hypertension) HLD (hyperlipidemia) Social History Social History Smoking Status: Never smoker Relationship: Spouse Do you feel safe in your home environment?: Yes Suffered physical, verbal, emotional, or financial abuse?: No History of Abuse: No POLST Patient has POLST: No Exam Constitutional normal general appearance and no apparent distress Eyes PERRL and EOMs intact bilaterally Respiratory breath sounds equal bilaterally and normal respiratory effort Cardiovascular normal heart rate noted and regular rhythm noted Gastrointestinal abdomen soft to palpation and nontender to palpation Results Vitals Vitals: Vital Signs - 24 hr 07/27/24 16:44 Temperature 36.7 C Pulse Rate 95 H Respiratory Rate 20 Blood Pressure 206/91 H O2 Saturation 98 O2 Source Room air Pain Intensity 0 Oxygen O2 Source Room air EKG (time done) 1647: EKG releavant findings:: EKG personally interpreted by author of this note. Relevant findings are: Twelve-lead EKG demonstrates normal sinus rhythm with probably a left bundle branch block albeit the computer reads it as IVCD with LAD. She has LVH. No obvious acute ischemic findings. No A-fib. Labs Labs: Laboratory Tests 07/27/24 16:56 WBC 8.5 RBC 3.79 L Hgb 10.6 L Hct 32.7 L MCV 86.3 MCH 28.0 MCHC 32.4 RDW 13.0 Plt Count 204 MPV 11.4 H Neut # (Auto) 6.7 H Lymph # (Auto) 1.1 L [place] # (Auto) 0.5 Eos # (Auto) 0.2 Baso # (Auto) 0.0 Absolute Nucleated RBC 0.00 Nucleated RBC % 0.0 Rads (name of study) CTA head/neck: Relevant Findings:: Final report received, Discussed with rads and EMP independent interpretation of test (R P3 DONATIONS ATTENDANT clot, reconsitution of absent prashanth L vert) Interpretation: Occlusion of the right P3 segment. Remainder of the intracranial arteries are patent and normal in caliber. Minimal flow is seen within the proximal and mid left vertebral artery with some areas of nonopacification, consistent with thrombosis. Coarse calcifications at the origins of the bilateral vertebral arteries with at least moderate stenosis bilaterally. CT Head- NAD: Relevant Findings:: Final report received and EMP independent interpretation of test (no bleed) PD Medical Decision Making ED course ED course: She presents as a result TIA but I think she is actually still having a stroke with persistent symptoms. As such code stroke was called on arrival and I spoke with the telestroke neurologist shortly after my initial evaluation. Further clarification of history from the at approximately 4:40 PM when he arrived. He felt like his was off all day and had a fall this morning and was stumbling around at 8 AM so may have had some symptomatology then. 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 She went over for CT/CTA. She has a right P3 DONATIONS ATTENDANT clot which then she saw our telestroke neurologist who did not feel this was an intervenable lesion. There was significant confusion about her time of onset may have been as early as 8 AM and the telestroke neurologist did not recommend thrombolytics based on that. Does recommend 3 weeks of DAPT, permissive hypertension, and MRI in the morning. Spoke with Dr. Haynes for observation at 5:06 PM. The patient and family are counseled as to the diagnosis and need for admission. This document was made in part using voice recognition software, while efforts are made to proofread this document, sound alike an grammatical errors may occur. Discharge Plan Discharge Patient Disposition: ED Place in Observation Condition: Serious Clinical Impression: Cerebrovascular accident (CVA) Prescriptions: No Action insulin glargine [Lantus Solostar U-100 Insulin] 100 UNIT/1 ML insulin pen 28 unit SQ DAILY metformin 850 MG tablet 500 mg PO BID glipizide 5 MG tablet 5 mg PO BID felodipine 5 MG tablet extended release 24 hr 10 mg PO DAILY losartan-hydrochlorothiazide 1 EACH tablet 1 mg PO DAILY simvastatin 20 MG tablet 40 mg PO QPM potassium citrate [Urocit-K 10] 10 MEQ tablet extended release 10 meq PO BID metoprolol tartrate 50 MG tablet 50 mg PO DAILY aspirin 81 MG tablet,chewable 81 mg PO DAILY cilostazol 50 MG tablet 50 mg PO DAILY clopidogrel 75 MG tablet 75 mg PO DAILY semaglutide [Ozempic] 0.25 MG/0.2 ML pen injector 0.5 mg SQ Rx Instructions: taken SubQ every wk. meclizine [Motion Sickness (meclizine)] 25 MG tablet 25 mg PO Q6H PRN (Reason: Dizziness) Qty: 20 0RF ondansetron 4 MG tablet,disintegrating 4 mg translingual Q6H PRN (Reason: Nausea / Vomiting) Qty: 10 0RF ondansetron 4 MG tablet,disintegrating 4 mg translingual Q6H PRN (Reason: Nausea / Vomiting) Qty: 10 0RF meclizine 12.5 MG tablet 25 mg PO Q6H PRN (Reason: Vertigo) Qty: 20 0RF Print Language: Turkmen Stand Alone Forms: PCP List NIHSS Level of Consciousness Level of consciousness: (0) Alert, Keenly responsive LOC Questions: (0) Answers both Q's correct LOC Commands: (0) Performs both correctly Gaze Best Gaze: (0) Normal Visual Visual: (0) No loss Facial Palsy Facial Palsy: (1) Minor paralysis (left) Motor Arms (both separate) Motor Arm (right): (0) No drift Motor Arm (left): (1) Drift Motor Legs (both separate) Motor Leg (right): (0) No drift Motor Leg (left): (1) Drift Limb Ataxia Limb Ataxia: (1) Present in 1 limb (LUE) Sensory Sensory: (0) Normal Best Language Best Language: (0) No aphasia Dysarthria Dysarthria: (1) Aupb-jy-rhfssjdq dysarthria Extinction and Inattention (formally neg Extinction and inattention: (0) No abnormality Total Score/Results Total Score/Result: 5 NIH Stroke Scale Instructions: Administer stroke scale items in the order listed. Record performance in each category after each subscale exam. Do not go back and change scores. Follow directions provided for each exam technique. Scores should reflect what the patient does, not what the clinician thinks the patient can do. The clinician should record answers while administering the exam and work quickly. Except where indicated, the patient should not be coached (i.e., repeated requests to patient to make a special effort) Instructions Scale Definition 3 1a. Level of Consciousness: The criminal investigator must choose a response if a full evaluation is prevented by such obstacles as an endotracheal tube, language barrier, orotracheal trauma/bandages. A 3 is scored only if the patient makes no movement (other than reflexive posturing) in response to noxious stimulation. 0 = Alert; keenly responsive. 1 = Not alert; but arousable by minor stimulation to obey, answer, or respond. 2 = Not alert; requires repeated stimula tion to attend, or is obtunded and requires strong or painful stimulation to make movements (not stereotyped). 3 = Responds only with reflex motor or autonomic effects or totally unresponsive, flaccid, and areflexic. 1b. LOC Questions: The patient is asked the month and his/her age. The answer must be correct - there is no partial credit for being close. Aphasic and stuporous patients who do not comprehend the questions will score 2. Patients unable to speak because of endotracheal intubation, orotracheal trauma, severe dysarthria from any cause, language barrier, or any other problem not secondary to aphasia are given a 1. It is important that only the initial answer be graded and that the examiner not "help" the patient with verbal or non-verbal cues. 0 = Answers both questions correctly. 1 = Answers one question correctly. 2 = Answers neither question correctly. 1c. LOC Commands: The patient is asked t o open and close the eyes and then to stained glass artist and release the non-paretic hand. Substitute another one step command if the hands cannot be used. Credit is given if an unequivocal attempt is made but not completed due to weakness. If the patient does not respond to command, the task should be demonstrated to him or her (pantomime), and the result scored (i.e., follows none, one or two commands). Patients with trauma, amputation, or other physical impediments should be given suitable one-step commands. Only the first attempt is scored. 0 = Performs both tasks correctly. 1 = Performs one task correctly. 2 = Performs neither task correctly. 2. Best Gaze: Only horizontal eye moveme nts will be tested. Voluntary or reflexive (oculocephalic) eye movements will be scored, but caloric testing is not done. If the patient has a conjugate deviation of the eyes that can be overcome by voluntary or reflexive activity, the score will be 1. If a patient has an isolated peripheral nerve paresis (CN III, IV or ), score a 1. Gaze is testable in all aphasic patients. Patients with ocular trauma, bandages, pre-existing blindness, or other disorder of visual acuity or stafford should be tested with reflexive movements, and a choice made by the criminal investigator. Establishing eye contact and then moving about the patient from side to side will occasionally clarify the presence of a partial gaze palsy. 0 = Normal. 1 = Partial gaze palsy; gaze is abnormal in one or both eyes, but forced deviation or total gaze paresis is not present. 2 = Forced deviation, or total gaze pare sis not overcome by the oculocephalic maneuver. 3. Visual: Visual stafford (upper and lowe r quadrants) are tested by confrontation, using finger counting or visual threat, as appropriate. Patients may be encouraged, but if they look at the side of the moving fingers appropriately, this can be scored as normal. If there is unilateral blindness or enucleation, visual stafford in the remaining eye are scored. Score 1 only if a clear-cut asymmetry, including quadrantanopia, is found. If patient is blind from any cause, score 3. Double simultaneous stimulation is performed at this point. If there is extinction, patient receives a 1, and the results are used to respond to item 11. 0 = No visual loss. 1 = Partial hemianopia. 2 = Complete hemianopia. 3 = Bilateral hemianopia (blind includin g cortical blindness). 4. Facial Palsy: Ask or use pantomime to encourage the patient to show teeth or raise eyebrows and close eyes. Score symmetry of grimace in response to noxious stimuli in the poorly responsive or non-comprehending patient. If facial trauma/bandages, orotracheal tube, tape or other physical barriers obscure the face, these should be removed to the extent possible. 0 = Normal symmetrical movements. 1 = Minor paralysis (flattened nasolabia l fold, asymmetry on smiling). 2 = Partial paralysis (total or near-tot al paralysis of lower face). 3 = Complete paralysis of one or both si nathan (absence of facial movement in the upper and lower face). 5. Motor Arm: The limb is placed in the appropriate position: extend the arms (palms down) 90 degrees (if sitting) or 45 degrees (if supine). Drift is scored if the arm falls before 10 seconds. The aphasic patient is encouraged using urgency in the voice and pantomime, but not noxious stimulation. Each limb is tested in turn, beginning with the non-paretic arm. Only in the case of amputation or joint fusion at the shoulder, the examiner should record the score as untestable (UN), and clearly write the explanation for this choice. 0 = No drift; limb holds 90 (or 45) degr ees for full 10 seconds. 1 = Drift; limb holds 90 (or 45) degrees , but drifts down before full 10 seconds; does not hit bed or other support. 2 = Some effort against gravity; limb cannot get to or maintain (if cued) 90 (or 45) degrees, drifts down to bed, but has some effort against gravity. 3 = No effort against gravity; limb fall s. 4 = No movement. UN = Amputation or joint fusion, explain: 5a. Left Arm 5b. Right Arm 6. Motor Leg: The limb is placed in the appropriate position: hold the leg at 30 degrees (always tested supine). Drift is scored if the leg falls before 5 seconds. The aphasic patient is encouraged using urgency in the voice and pantomime, but not noxious stimulation. Each limb is tested in turn, beginning with the non-paretic leg. Only in the case of amputation or joint fusion at the hip, the examiner should record the score as untestable (UN), and clearly write the explanation for this choice. 0 = No drift; leg holds 30-degree positi on for full 5 seconds. 1 = Drift; leg falls by the end of the 5 -second period but does not hit bed. 2 = Some effort against gravity; leg fal ls to bed by 5 seconds, but has some effort against gravity. 3 = No effort against gravity; leg falls to bed immediately. 4 = No movement. UN = Amputation or joint fusion, explain: 6a. Left Leg 6b. Right Leg 7. Limb Ataxia: This item is aimed at fi nding evidence of a unilateral cerebellar lesion. Test with eyes open. In case of visual defect, ensure testing is done in intact visual field. The vmxang-lzgb-zrhncz and heel-haque tests are performed on both sides, and ataxia is scored only if present out of proportion to weakness. Ataxia is absent in the patient who cannot understand or is paralyzed. Only in the case of amputation or joint fusion, the examiner should record the score as untestable (UN), and clearly write the explanation for this choice. In case of blindness, test by having the patient touch nose from extended arm position. 0 = Absent. 1 = Present in one limb. 2 = Present in two limbs. UN = Amputation or joint fusion, explain: 8. Sensory: Sensation or grimace to pinp keyonna when tested, or withdrawal from noxious stimulus in the obtunded or aphasic patient. Only sensory loss attributed to stroke is scored as abnormal and the examiner should test as many body areas (arms [not hands], legs, trunk, face) as needed to accurately check for hemisensory loss. A score of 2, severe or total sensory loss, shoul d only be given when a severe or total loss of sensation can be clearly demonstrated. Stuporous and aphasic patients will, therefore, probably score 1 or 0. The patient with brainstem stroke who has bilateral loss of sensation is scored 2. If the patient does not respond and is quadriplegic, score 2. Patients in a coma (item 1a=3) are automatically given a 2 on this item. 0 = Normal; no sensory loss. 1 = Tzgt-xl-lzqniepp sensory loss; patient feels pinprick is less sharp or is dull on the affected side; or there is a loss of superficial pain with pinprick, but patient is aware of being touched. 2 = Severe to total sensory loss; patient is not aware of being touched in the face, arm, and leg. 9. Best Language: A great deal of inform ation about comprehension will be obtained during the preceding sections of the examination. For this scale item, the patient is asked to describe what is happening in the attached picture, to name the items on the attached naming sheet and to read from the attached list of sentences. Comprehension is judged from responses here, as well as to all of the commands in the preceding general neurological exam. If visual loss interferes with the tests, ask the patient to identify objects placed in the hand, repeat, and produce speech. The intubated patient should be asked to write. The patient in a coma (item 1a=3) will automatically score 3 o n this item. The examiner must choose a score for the patient with stupor or limited cooperation, but a score of 3 should be used only if the patient is mute and follows no one-step commands. 0 = No aphasia; normal. 1 = Lrwa-dl-odbicxtw aphasia; some obvious loss of fluency or facility of comprehension, without significant limitation on ideas expressed or form of expression. Reduction of speech and/or comprehension, however, makes conversation about provided materials difficult or impossible. For example, in conversation about provided materials, examiner can identify picture or naming card content from patients response. 2 = Severe aphasia; all communication is through fragmentary expression; great need for inference, questioning, and guessing by the listener. Range of information that can be exchanged is limited; listener carries burden of communication. Examiner cannot identify materials provided from patient response. 3 = Mute, global aphasia; no usable speech or auditory comprehension. 10. Dysarthria: If patient is thought to be normal, an adequate sample of speech must be obtained by asking patient to read or repeat words from the attached list. If the patient has severe aphasia, the clarity of articulation of spontaneous speech can be rated. Only if the patient is intubated or has other physical barriers to producing speech, the examiner should record the score as untestable (UN), and clearly write an explanation for this choice. Do not tell the patient why he or she is being tested. 0 = Normal. 1 = Hgih-jr-yqlglkvd dysarthria; patient slurs at least some words and, at worst, can be understood with some difficulty. 2 = Severe dysarthria; patient's speech is so slurred as to be unintelligible in the absence of or out of proportion to any dysphasia, or is mute/anarthric. UN = Intubated or other physical barrier, explain: 11. Extinction and Inattention (formerly Neglect): Sufficient information to identify neglect may be obtained during the prior testing. If the patient has a severe visual loss preventing visual double simultaneous stimulation, and the cutaneous stimuli are normal, the score is normal. If the patient has aphasia but does appear to attend to both sides, the score is normal. The presence of visual spatial neglect or anosagnosia may also be taken as evidence of abnormality. Since the abnormality is scored only if present, the item is never untestable. 0 = No abnormality. 1 = Visual, tactile, auditory, spatial, or personal inattention or extinction to bilateral simultaneous stimulation in one of the sensory modalities. 2 = Profound sherry-inattention or extinction to more than one modality; does not recognize own hand or orients to only one side of space. The first three images are for question 9) Best Language The following image is for question 10) Dysarthria Citation [employer], National [place] of Neurological Disorders and Stroke
--- NOTE | 2024-07-27 16:51 | CT Report ---
PROCEDURE: CT Head W/O Stroke Protocol INDICATIONS: Neuro deficit, acute, stroke suspected TECHNIQUE: Noncontrast 4.5 mm thick angled axial sections acquired from the foramen magnum to the vertex, with c oronal reformats. For radiation dose reduction, the following was used: automated exposure control, adjustment of mA and/or kV according to patient size. COMPARISON: 04/07/2024. FINDINGS: Image quality: Excellent. CSF spaces: Basal cisterns are patent. No extra-axial fluid collections. Ventricles are normal in size and shape. Brain: No midline shift. No intracranial masses or hemorrhage. Age-related global volume loss and c hronic microvascular ischemic changes. Intracranial atherosclerotic vascular calcifications. Griffiths-wh ite matter interface is normal. Skull and face: Calvarium and visualized facial bones are intact, without suspicious lesions. Sinuses: Visualized sinuses and mastoids are clear. IMPRESSION: No acute intracranial pathology Findings were discussed with ordering provider on 07/27/2024 at 4:43 PM. This study fulfills neurological imaging criteria for inclusion or exclusion of acute stroke therapie s based on available published neurological imaging guidelines. Reviewed by: Luke Kearns MD on 07/27/2024 4:50 PM PST Approved by: Luke Kearns MD on 07/27/2024 4:50 PM PST Station ID: [id number]
--- NOTE | 2024-07-27 17:00 | CT Report ---
PROCEDURE: CT Angio Head/Neck INDICATIONS: cva sx TECHNIQUE: After the administration of intravenous contrast, 1 mm thick sections acquired from the aortic arch t hrough the [place] of [place]. 3-dimensional srdzyuk-rprsfhcsi-swsixrvchf (MIP) and/or volume renderin g reformats were acquired of the central intracranial vasculature and neck separately. For radiation dose reduction, the following was used: automated exposure control, adjustment of mA and/or kV acco rding to patient size. CONTRAST: Omni 300 80ml COMPARISON: None. FINDINGS: Image quality: Diagnostic. HEAD CT: Please refer to same day CT of the head. HEAD CT ANGIOGRAPHY: Anterior circulation: Intracranial internal carotid arteries are normal in size and flow without rosana cifications. Hypoplastic left A1 segment. Otherwise, the flow within the paired anterior cerebral art eries is normal and symmetric. The flow within the middle cerebral arteries is normal and symmetric. The anterior communicating artery is seen. No aneurysms are seen. Posterior circulation: Visualized portions of the vertebral arteries demonstrate normal caliber, and join to form a normal appearing basilar artery. Flow within the posterior cerebral arteries P1 and P2 segments is normal and symmetric. The right P3 segment appears occluded, the left P2 segment is wi thin normal limits. No aneurysms are seen. NECK CT ANGIOGRAPHY: Carotid system: The great vessels demonstrate a conventional anatomy as they arise from the aortic a rch. Pressure visualized descending aortic stent. The origins of the common carotid arteries appear patent. The common carotid arteries demonstrate normal caliber and courses. The bifurcation regions demonstrate or atherosclerotic calcifications without significant stenosis. The internal carotid ar teries demonstrate normal calibers and tortuous courses. Posterior circulation: Coarse calcifications at the origins of the bilateral vertebral arteries with at least moderate stenosis bilaterally. There is occlusion of the proximal and mid portions of the le ft vertebral artery with minimal flow and some areas of no flow. There is reconstitution more distall y. The vertebral artery is patent and normal in caliber throughout They join to form a normal appeari ng basilar artery. Soft tissues: Visualized neck soft tissues demonstrate no suspicious abnormalities. Bones: No suspicious bony lesions. Visualized cervical spine appears normally aligned. Degenerative changes of the spine. IMPRESSION: Occlusion of the right P3 segment. Remainder of the intracranial arteries are patent and normal in ca liber. Minimal flow is seen within the proximal and mid left vertebral artery with some areas of nonopacific ation, consistent with thrombosis. Coarse calcifications at the origins of the bilateral vertebral ar teries with at least moderate stenosis bilaterally. Findings were communicated to the ordering provider at 4:50 PM on 07/27/2024 The estimate of stenosis included in the report of the imaging study was calculated using the NASCET method Reviewed by: Luke Kearns MD on 07/27/2024 4:59 PM PST Approved by: Luke Kearns MD on 07/27/2024 4:59 PM PST Station ID: [id number]
[2024-07-27 17:02] LABS: BASOPHILS % (AUTO) 0.5 %; EOSINOPHILS # (AUTO) 0.2 10^3/uL (0.0-0.7); EOSINOPHILS % (AUTO) 1.9 %; HCT - HEMATOCRIT 32.7 % (37.0-47.0); HGB - HEMOGLOBIN 10.6 g/dL (12.0-16.0); LYMPHOCYTES # (AUTO) 1.1 10^3/uL (1.5-3.5); LYMPHOCYTES % (AUTO) 12.8 %; MEAN CORPUSCULAR HGB CONC 32.4 g/dL (32.0-36.0); MEAN CORPUSCULAR VOLUME 86.3 fL (81.0-99.0); MEAN PLATELET VOLUME 11.4 fL (7.9-10.8); MONOCYTES # (AUTO) 0.5 10^3/uL (0.0-1.0); MONOCYTES % (AUTO) 5.3 %; NEUTROPHILS # (AUTO) 6.7 10^3/uL (1.5-6.6); PLT - PLATELET COUNT 204 10^3/uL (130-450); RED BLOOD COUNT 3.79 10^6/uL (4.20-5.40); WHITE BLOOD COUNT 8.5 x10^3/uL (4.8-10.8)
[2024-07-27] MEDS: iohexoL-300 100 ML VIAL IVP ONE (17:09)
[2024-07-27] MEDS: ASPIRIN CHEW 81 MG TABLET PO STA (17:13)
[2024-07-27] MEDS: CLOPIDOGREL 75 MG TABLET PO STA (17:14)
[2024-07-27 17:20] LABS: ALBUMIN 3.9 g/dL (3.2-5.5); ALBUMIN/GLOBULIN RATIO 1.7 (1.0-2.2); BILIRUBIN,TOTAL 0.6 mg/dL (0.2-1.0); CALCIUM 9.2 mg/dL (8.5-10.3); INR 1.1 (0.8-1.2); POTASSIUM 3.5 mmol/L (3.5-4.5); PT - PROTHROMBIN TIME 12.5 secs (9.9-12.6); TOTAL PROTEIN 6.2 g/dL (6.4-8.9)
--- NOTE | 2024-07-27 17:43 | HISTORY & PHYSICAL EXAMINATION ---
Chief Complaint Chief Complaint Chief Complaint: not feeling well. History of Present Illness Admitted From Admitted From:: ED History Obtained From History obtained from: Patient and spouse History of Present Illness HPI Comment/Other: 79-year-old female with a history of diabetes, hypertension, status post TAVR, on Plavix for heart attack and stroke prevention who presents to the emergency department with neurological deficit. She got up this morning and she was not feeling well. Her had a dentist appointment. He went to that, then came home and found her in her chair not feeling well. She was lying in the chair without the legs up barely supported saying "help me.". He checked her blood sugar and when that was normal he called EMS. Her symptoms are that of dysarthria right facial droop and weakness in the right upper and lower extremity. CTA of the head and neck was also done in the emergency department. 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 Telestroke neurologist did not feel this was an intervenable lesion. Her symptoms started around 8:00 this morning and have changed through the day. Telehealth stroke was consulted. Telestroke neurologist recommended against thrombolytics based on the fact that the onset of symptoms could have been as early as 8 AM. Telestroke recommended 3 weeks of dual antiplatelet therapy, permissive hypertension MRI, and workup for secondary stroke prevention. Her is her surrogate decision maker for medical. They had a recent visit to their primary care physician about a week ago at which time they filled out a POLST. They did not bring the POLST to the hospital. They both agree that the POLST says DNR with selective interventions, DO NOT INTUBATE. Meds/Allgy Home Medications Ambulatory Orders Medication Instructions Recorded Confirmed felodipine 5 mg tablet,extended 10 mg PO DAILY 09/01/13 04/09/22 release 24 hr glipizide 5 mg tablet 5 mg PO BID 09/01/13 04/09/22 insulin glargine 100 unit/mL (3 28 unit SQ DAILY 09/01/13 04/09/22 mL) subcutaneous pen (Lantus Solostar U-100 Insulin) losartan 100 1 mg PO DAILY 09/01/13 04/09/22 mg-hydrochlorothiazide 25 mg tablet metformin 850 mg tablet 500 mg PO BID 09/01/13 04/09/22 potassium citrate 10 mEq (1,080 10 meq PO BID 09/01/13 04/09/22 mg) tablet,extended release (Urocit-K 10) simvastatin 20 mg tablet 40 mg PO QPM 09/01/13 04/09/22 aspirin 81 mg chewable tablet 81 mg PO DAILY 02/07/15 04/09/22 metoprolol tartrate 50 mg tablet 50 mg PO DAILY 02/07/15 04/09/22 cilostazol 50 mg tablet 50 mg PO DAILY 04/09/22 04/09/22 clopidogrel 75 mg tablet 75 mg PO DAILY 04/09/22 04/09/22 meclizine 25 mg tablet (Motion 25 mg PO Q6H PRN Dizziness #20 tabs 04/09/22 Sickness (meclizine)) ondansetron 4 mg disintegrating 4 mg translingual Q6H PRN Nausea / 04/09/22 tablet Vomiting #10 tabs semaglutide 0.25 mg or 0.5 mg (2 0.5 mg SQ 04/09/22 mg/1.5 mL) subcutaneous pen injector (Ozempic) meclizine 12.5 mg tablet 25 mg (2 x 12.5 mg) PO Q6H PRN 04/07/24 Vertigo #20 tabs ondansetron 4 mg disintegrating 4 mg translingual Q6H PRN Nausea / 04/07/24 tablet Vomiting #10 tabs Allergies Allergies Allergy/AdvReac Type Severity Reaction Status Date / Time mercury (elemental) (Mercury Allergy Unknown Verified 07/27/24 16:47 (Elemental)) PFS Medical History Medical History (Updated 07/27/24 @ 18:07 by SHAHID Villagran) HTN (hypertension) HLD (hyperlipidemia) Surgical History Surgical History (Updated 07/27/24 @ 17:47 by SHAHID Villagran) Status post bilateral knee replacements Family History Family History (Updated 07/27/24 @ 17:48 by SHAHID Villagran) Brother Heart attack Social History Social History Smoking Status: Never smoker Relationship: Spouse Do you feel safe in your home environment?: Yes Suffered physical, verbal, emotional, or financial abuse?: No History of Abuse: No POLST Patient has POLST: Yes POLST Status: selective treatment. Review of Systems Status of ROS: 10 or more systems reviewed and unremarkable except as noted in history and below Constitutional Reports: Malaise and Poor appetite; Denies: Fatigue, Fever or Chills Eyes Denies: Blurry vision or Field loss Ears, nose, mouth, and throat Denies: Tinnitus or Neck pain Cardiovascular Denies: Irregular heart rate, palpitations or shortness of breath with exertion Respiratory Denies: Shortness of breath Gastrointestinal Reports: Nausea, Vomiting and Poor appetite; Denies: Abdominal pain Genitourinary Denies: Painful urination Musculoskeletal Denies: Back pain or Neck pain Integumentary/Breast Denies: Rash Neurological Reports: Focal weakness and Weakness in extremities; Denies: Headache or Pre- existing deficit Psychiatric Denies: Depression Endocrine Denies: Fatigue Prior Level of Functionality: Lives independently with her . Continues to drive and do grocery shopping. Cooks meals. They have a food preservation scientist that comes in twice a month. Her relates that she is having increasing difficulty in completing these tasks. Exam Constitutional normal general appearance and no apparent distress HENMT normocephalic, head/scalp atraumatic and nasal mucous membranes normal Eyes PERRL, EOMs intact bilaterally, conjunctivae normal and no scleral icterus Neck/C-Spine visual inspection normal Lymph no lymphadenopathy noted Chest inspection of chest normal and palpation of chest normal Respiratory breath sounds equal bilaterally and normal respiratory effort Cardiovascular normal heart rate noted and regular rhythm noted Gastrointestinal nondistended Back/Pelvis spine normal to inspection Extremities normal to inspection, normal to palpation, no tenderness and no joint enlargement Neurology no movement abnormality noted and GCS 15 flattening of the right nasolabial fold. some hesitancy in her answers, without dysarthria. slight weakness in the right upper extremity (4+/5). Psychiatry mental status grossly normal, oriented x3, thought process normal, cooperative and affect normal Skin skin color normal Conclusion/Plan Problem List (1) Cerebrovascular accident (CVA): Plan: Plan to admit disussed with Dr Dixon. Acute acute CVA with occlusion of the P3 segment of the right posterior cerebral artery. This was discussed acutely with telestroke neurologist who does not feel this is an intervenable lesion. The recommendation is for 3 weeks of dual antiplatelet therapy. The patient is already taking Plavix for years. Heart attack and stroke prevention she has been on this for she is not on aspirin. She is hypertensive in the emergency department to the low 200s over low 100s. At home she takes felodipine, metoprolol for her blood pressure. I will hold these medications and allow permissive hypertension for 48 hours to 220/120. I will write orders for as needed blood pressure control. Recommendation by stroke neurology is for MRI of the brain, 3 weeks of dual antiplatelet therapy, echocardiogram,. Additionally I have ordered PT and OT evaluations to assess if this patient is going to require senior living rehab. Qualifiers: CVA mechanism: occlusion Laterality of affected vessel: right P recerebral and cerebral artery: posterior cerebral artery Qualified Code(s): I 63.531 - Cerebral infarction due to unspecified occlusion or stenosis of right posterior cerebral artery (2) Diabetes: Plan: I do not know what her most recent A1c is. She sees an civil engineering project designer with [facility]. Her home medications for diabetes include glipizide 5 mg twice daily, glargine insulin 28 units subcu daily,Ozempic 0.5 mg weekly which is overdue by about 10 days now. She does not always remember to take her Ozempic she is supposed to take it every . I will hold this given her nausea vomiting and decreased appetite. We will order Lantus insulin and sliding scale insulin to manage her diabetes while she is inpatient. We will hold her glipizide and her Ozempic. Qualifiers: Diabetes mellitus assisted insulin use: with terminal block assembler use Diabetes mellitus type: type 2 (3) HTN (hypertension): Plan: Home medications are felodipine 5 mg p.o. daily, Losartan 100/HCTZ 25 mg p.o. daily and metoprolol tartrate 50 mg daily. I will hold these medications at this time. Will allow permissive hypertension for the first 48 hours after her CVA. Qualifiers: Hypertension type: primary hypertension Qualified Code(s): I10 - Essential (primary) hypertension (4) HLD (hyperlipidemia): Plan: Home medication of simvastatin 40 mg every evening. We will continue this for secondary stroke prevention. I have spent 75 minutes in the care of this patient today. This includes time [id number], review and ordering of diagnostic imaging and laboratory studies and consultation with other providers.. Monitoring the patient's signs symptoms, evaluation of medication effectiveness and patient's response to treatment. Qualifiers: Hyperlipidemia type: unspecified Qualified Code(s): E78.5 - Hyperlipidemia, unspecified Lab Results 07/27/24 16:56 07/27/24 16:56 EKG Results EKG Interpreted Independently: No
[2024-07-27] MEDS ORDERED: ONDANSETRON ODT 4 MG TABLET TL PRN (18:39)
[2024-07-27] MEDS ORDERED: SODIUM CHLORIDE FLUSH 0.9% 10 ML SYRINGE IVP PRN (18:39)
[2024-07-27] MEDS ORDERED: LABETALOL 20 MG/4 ML SYRINGE IVP PRN (18:39)
[2024-07-27] MEDS ORDERED: oxyCODONE 5 MG TABLET PO PRN (18:39)
[2024-07-27] MEDS ORDERED: ONDANSETRON 4 MG/2 ML VIAL IVP PRN (18:39)
[2024-07-27] MEDS ORDERED: ACETAMINOPHEN 325 MG TABLET PO PRN (18:39)
[2024-07-27] MEDS: ATORVASTATIN 40 MG TABLET PO SCH (21:07)
--- NOTE | 2024-07-27 22:02 | PROVIDER PROGRESS NOTE ---
Hospitalist Cross-cover Note Cross-Cover Note Cross-Cover Note: Called by RN stating " Patient admitted with L posterior cerebral artery stroke this afternoon. Neuro nur, she is alert & oriented, mild slurrred speech, & slight right mouth droop. All extremities are equal in strength. Her gait is wobbly when she was transfered from the [facility] to bed & we have not gotten her up since. At 2119, she suddendy complained of double vision which she did not have when she came in. VS B/P 189/99, HR 93, O2 sat 100% RA, T=36.5 R=20. No c/o headache, chest pain or neck pain. The only medicine she received at 2100 is Atorvastatin 80 mg, and her blood glucose is 113. Please advise on what to do next. Thank you." Chart and EMR reviewed briefly, patient discussed at length with RN, and greenhouse or nursery transplanter, patient is on appropriate meds, teleneurology contacted by ER, would recommend also calling teleneurology and update and see if they have any other input, patient has no new motor deficit, no headache, no other complaints. Continue Neurochecks
--- NOTE | 2024-07-27 22:58 | PROVIDER PROGRESS NOTE ---
Horticulture Superintendent Note Horticulture Superintendent Note Horticulture Superintendent Note: Called by RN stating patient symptoms have worsening, called code stroke, did speak with tele Neurologist who recommended repeat CT head stroke protocol, he will review images and if any concers will call us back, discussed with perennial house manager, plan to send patient for CT Head stat
--- NOTE | 2024-07-27 23:32 | CT Report ---
PROCEDURE: CT Head W/O Stroke Protocol INDICATIONS: worsening symptoms TECHNIQUE: Noncontrast 4.5 mm thick angled axial sections acquired from the foramen magnum to the vertex, with c oronal reformats. For radiation dose reduction, the following was used: automated exposure control, adjustment of mA and/or kV according to patient size. COMPARISON: CT performed earlier the same day FINDINGS: Image quality: Excellent. CSF spaces: Basal cisterns are patent. No extra-axial fluid collections. Ventricles are normal in size and shape. Brain: No midline shift. No intracranial masses or hemorrhage. Griffiths-white matter interface is norm al. Age-appropriate cortical volume loss and moderate periventricular chronic microvascular ischemic changes. Skull and face: Calvarium and visualized facial bones are intact, without suspicious lesions. Sinuses: Visualized sinuses and mastoids are clear. IMPRESSION: No acute changes. Specifically, no new hemorrhage or mass effect. Findings called to the ordering telehealth doctor Dr. De Delgadillo at 2329 hours. This study fulfills neurological imaging criteria for inclusion or exclusion of acute stroke therapie s based on available published neurological imaging guidelines. Reviewed by: Laura Thayer MD on 07/27/2024 11:31 PM PST Approved by: Laura Thayer MD on 07/27/2024 11:31 PM PST Station ID: [id number]
--- NOTE | 2024-07-27 23:36 | PROVIDER PROGRESS NOTE ---
Sawdust Drier Note Sawdust Drier Note Sawdust Drier Note: Got a call from Radiology stating repeat CT scan shows no changes, also patient have acute urinary retention, bennett ordered
[2024-07-28] MEDS: SODIUM CHLORIDE FLUSH 0.9% 10 ML SYRINGE IVP SCH (01:17)
[2024-07-28 04:50] LABS: RED BLOOD COUNT 4.95 10^6/uL (4.20-5.40); WHITE BLOOD COUNT 15.9 x10^3/uL (4.8-10.8)
[2024-07-28 04:51] LABS: BASOPHILS # (AUTO) 0.1 10^3/uL (0.0-0.1); BASOPHILS % (AUTO) 0.4 %; EOSINOPHILS # (AUTO) 0.1 10^3/uL (0.0-0.7); EOSINOPHILS % (AUTO) 0.8 %; HCT - HEMATOCRIT 42.5 % (37.0-47.0); LYMPHOCYTES # (AUTO) 2.5 10^3/uL (1.5-3.5); LYMPHOCYTES % (AUTO) 15.5 %; MEAN CORPUSCULAR HEMOGLOBIN 28.3 pg (27.0-31.0); MEAN CORPUSCULAR HGB CONC 32.9 g/dL (32.0-36.0); MEAN CORPUSCULAR VOLUME 85.9 fL (81.0-99.0); MEAN PLATELET VOLUME 11.9 fL (7.9-10.8); MONOCYTES # (AUTO) 0.8 10^3/uL (0.0-1.0); MONOCYTES % (AUTO) 5.2 %; NEUTROPHILS # (AUTO) 12.4 10^3/uL (1.5-6.6); NEUTROPHILS % (AUTO) 77.7 %; PLT - PLATELET COUNT 304 10^3/uL (130-450)
[2024-07-28 04:56] LABS: INR 1.2 (0.8-1.2); PARTIAL THROMBOPLASTIN TIME 26.9 secs (24.9-33.3); PT - PROTHROMBIN TIME 12.8 secs (9.9-12.6)
[2024-07-28 05:00] LABS: ALBUMIN 4.6 g/dL (3.2-5.5); ALBUMIN/GLOBULIN RATIO 1.6 (1.0-2.2); BILIRUBIN,TOTAL 0.7 mg/dL (0.2-1.0); CALCIUM 9.9 mg/dL (8.5-10.3); CHOL/HDL RATIO 2.4 (<4.4); CHOLESTEROL 154 mg/dL; HDL CHOLESTEROL 63 mg/dL; LDL CHOLESTEROL,CALCULATED 67 mg/dL; LDL/HDL RATIO 1.1 (<4.4); POTASSIUM 3.2 mmol/L (3.5-4.5); TOTAL PROTEIN 7.5 g/dL (6.4-8.9); TRIGLYCERIDES 118 mg/dL; VLDL CHOLESTEROL 24 mg/dL
[2024-07-28] MEDS: LOSARTAN 50 MG TABLET PO SCH (09:23)
[2024-07-28] MEDS: ENOXAPARIN 40 MG/0.4 ML SYRINGE SUBQ SCH (09:23)
[2024-07-28] MEDS: MULTIVITAMIN TABLET PO SCH (09:23)
[2024-07-28] MEDS: ASPIRIN CHEW 81 MG TABLET PO SCH (09:23)
[2024-07-28] MEDS: POTASSIUM CHLORIDE 20 MEQ TABLET PO ONE (09:23)
[2024-07-28] MEDS: CLOPIDOGREL 75 MG TABLET PO SCH (09:23)
--- NOTE | 2024-07-28 11:14 | PROVIDER PROGRESS NOTE ---
Subjective Prog Note Date Prog Note Date: 07/28/24 Subjective Pt reports feeling: Improved Current Medications Current Medications Current Medications: Current Medications Generic Name Dose Route Start Last Admin Trade Name Freq PRN Reason Stop Dose Admin Acetaminophen 650 mg 07/27/24 18:39 Acetaminophen 325 Mg Tablet PO Q4HR PRN Pain 1 to 4, or Fever Aspirin 81 mg 07/28/24 09:00 07/28/24 09:23 Aspirin Chew 81 Mg Tablet PO 81 mg DAILY RAHUL Administration Atorvastatin Calcium 80 mg 07/27/24 21:00 07/27/24 21:07 Atorvastatin 40 Mg Tablet PO 80 mg QPM RAHUL Administration Clopidogrel Bisulfate 75 mg 07/28/24 09:00 07/28/24 09:23 Clopidogrel 75 Mg Tablet PO 75 mg DAILY RAHUL Administration Enoxaparin Sodium 40 mg 07/28/24 09:00 07/28/24 09:23 Enoxaparin 40 Mg/0.4 Ml Syringe SUBQ 40 mg DAILY RAHUL Administration Labetalol HCl 10 mg 07/27/24 18:39 Labetalol 20 Mg/4 Ml Syringe IVP Q10M PRN SBP >220 OR DBP>120 Losartan Potassium 50 mg 07/28/24 09:00 07/28/24 09:23 Losartan 50 Mg Tablet PO 50 mg DAILY RAHUL Administration Multivitamins 1 tab 07/28/24 08:00 07/28/24 09:23 Multivitamin Tablet PO 1 tab DAILYWM RAHUL Administration Ondansetron HCl 4 mg 07/27/24 18:39 Ondansetron Odt 4 Mg Tablet TL Q6HR PRN Nausea / Vomiting Ondansetron HCl 4 mg 07/27/24 18:39 Ondansetron 4 Mg/2 Ml Vial IVP Q6HR PRN Nausea / Vomiting Oxycodone HCl 5 mg 07/27/24 18:39 Oxycodone 5 Mg Tablet PO Q4HR PRN Pain 5 to 7 Sodium Chloride 10 ml 07/27/24 18:39 Sodium Chloride Flush 0.9% 10 Ml Syringe IVP PRN PRN NEEDED PER PROVIDER ORDERS Sodium Chloride 10 ml 07/28/24 01:00 07/28/24 09:24 Sodium Chloride Flush 0.9% 10 Ml Syringe IVP 10 ml 0100,0900,1700 RAHUL Administration Objective Vital Signs/Intake & Output Reviewed Vital Signs: Yes Vital Signs: Vital Signs x48h Temp Pulse Resp BP Pulse Ox 07/28/24 04:12 36.7 C 106 H 20 179/109 H 99 Intake & Output: Intake & Output 07/26/24 07/27/24 07/28/24 07/29/24 05:59 05:59 05:59 05:59 Output Total 1000 / 1000 Balance -1000 / -1000 Weight (kg) 66.5 kg Objective General Appearance: positive No acute distress and Alert Eyes Bilateral: positive Normal inspection and PERRL ENT: positive ENT inspection nml Neck: positive Nml inspection Respiratory: positive Chest non-tender Cardiovascular: positive Regular rate & rhythm Abdomen: positive Non-tender Back: positive Nml inspection Skin: positive Color nml Extremities: positive Non-tender Neurologic/Psychiatric: positive Oriented x3 and Facial droop (Very mild facial droop noted on the right side); negative Motor nml (Some right-sided weakness, strength 4/5) Lab Results 07/28/24 04:29 07/28/24 04:29 Other Labs: Lab Results x24hrs 07/28/24 07/28/24 07/27/24 Range/Units 08:03 04:29 22:41 WBC 15.9 H (4.8-10.8) x10^3/uL RBC 4.95 (4.20-5.40) 10^6/uL Hgb 14.0 (12.0-16.0) g/dL Hct 42.5 (37.0-47.0) % MCV 85.9 (81.0-99.0) fL MCH 28.3 (27.0-31.0) pg MCHC 32.9 (32.0-36.0) g/dL RDW 13.0 (12.0-15.0) % Plt Count 304 (130-450) 10^3/uL MPV 11.9 H (7.9-10.8) fL Neut # (Auto) 12.4 H (1.5-6.6) 10^3/uL Lymph # (Auto) 2.5 (1.5-3.5) 10^3/uL Bates # (Auto) 0.8 (0.0-1.0) 10^3/uL Eos # (Auto) 0.1 (0.0-0.7) 10^3/uL Baso # (Auto) 0.1 (0.0-0.1) 10^3/uL Absolute Nucleated RBC 0.00 x10^3/uL Nucleated RBC % 0.0 /100WBC PT 12.8 H (9.9-12.6) secs INR 1.2 (0.8-1.2) APTT 26.9 (24.9-33.3) secs Sodium 136 (135-145) mmol/L Potassium 3.2 L (3.5-4.5) mmol/L Chloride 101 (101-111) mmol/L Carbon Dioxide 25 (21-32) mmol/L Anion Gap 10.0 (6-13) BUN 12 (6-20) mg/dL Creatinine 1.0 (0.6-1.3) mg/dL Estimated GFR (MDRD) 53 L (>89) Glucose 163 H (74-104) mg/dL POC Whole Bld Glucose 144 188 (70-100) mg/dL Calcium 9.9 (8.5-10.3) mg/dL Total Bilirubin 0.7 (0.2-1.0) mg/dL AST 16 (10-42) IU/L ALT 11 (10-60) IU/L Alkaline Phosphatase 76 (42-121) IU/L Total Protein 7.5 (6.4-8.9) g/dL Albumin 4.6 (3.2-5.5) g/dL Globulin 2.9 (2.1-4.2) g/dL Albumin/Globulin Ratio 1.6 (1.0-2.2) Triglycerides 118 mg/dL Cholesterol 154 ( - 200) mg/dL LDL Cholesterol, Calc 67 ( - 129) mg/dL VLDL Cholesterol 24 mg/dL HDL Cholesterol 63 (60 - ) mg/dL LDL/HDL Ratio 1.1 (<4.4) Cholesterol/HDL Ratio 2.4 (<4.4) Lipase (11-82) U/L 07/27/24 07/27/24 Range/Units 21:06 16:56 WBC 8.5 (4.8-10.8) x10^3/uL RBC 3.79 L (4.20-5.40) 10^6/uL Hgb 10.6 L (12.0-16.0) g/dL Hct 32.7 L (37.0-47.0) % MCV 86.3 (81.0-99.0) fL MCH 28.0 (27.0-31.0) pg MCHC 32.4 (32.0-36.0) g/dL RDW 13.0 (12.0-15.0) % Plt Count 204 (130-450) 10^3/uL MPV 11.4 H (7.9-10.8) fL Neut # (Auto) 6.7 H (1.5-6.6) 10^3/uL Lymph # (Auto) 1.1 L (1.5-3.5) 10^3/uL Bates # (Auto) 0.5 (0.0-1.0) 10^3/uL Eos # (Auto) 0.2 (0.0-0.7) 10^3/uL Baso # (Auto) 0.0 (0.0-0.1) 10^3/uL Absolute Nucleated RBC 0.00 x10^3/uL Nucleated RBC % 0.0 /100WBC PT 12.5 (9.9-12.6) secs INR 1.1 (0.8-1.2) APTT (24.9-33.3) secs Sodium 134 L (135-145) mmol/L Potassium 3.5 (3.5-4.5) mmol/L Chloride 103 (101-111) mmol/L Carbon Dioxide 26 (21-32) mmol/L Anion Gap 5.0 L (6-13) BUN 12 (6-20) mg/dL Creatinine 1.0 (0.6-1.3) mg/dL Estimated GFR (MDRD) 53 L (>89) Glucose 175 H (74-104) mg/dL POC Whole Bld Glucose 113 (70-100) mg/dL Calcium 9.2 (8.5-10.3) mg/dL Total Bilirubin 0.6 (0.2-1.0) mg/dL AST 13 (10-42) IU/L ALT 9 L (10-60) IU/L Alkaline Phosphatase 61 (42-121) IU/L Total Protein 6.2 L (6.4-8.9) g/dL Albumin 3.9 (3.2-5.5) g/dL Globulin 2.3 (2.1-4.2) g/dL Albumin/Globulin Ratio 1.7 (1.0-2.2) Triglycerides mg/dL Cholesterol ( - 200) mg/dL LDL Cholesterol, Calc ( - 129) mg/dL VLDL Cholesterol mg/dL HDL Cholesterol (60 - ) mg/dL LDL/HDL Ratio (<4.4) Cholesterol/HDL Ratio (<4.4) Lipase 12 (11-82) U/L Diagnostic Imaging Diagnostic Imaging Results: positive Final report reviewed Diagnostic Imaging Comments: CTA head/neck with occlusion of right P3 segment Assessment/Plan Problem List (1) Cerebrovascular accident (CVA): Impression: DAPT x 3 weeks Already on Plavix at home Permissive hypertension for 1 more day, maintain pressure below 220/120 MRI brain, echo PT/OT Qualifiers: CVA mechanism: occlusion Laterality of affected vessel: right P recerebral and cerebral artery: posterior cerebral artery Qualified Code(s): I 63.531 - Cerebral infarction due to unspecified occlusion or stenosis of right posterior cerebral artery (2) Diabetes: Impression: Check A1c SSI Holding glipizide, Ozempic while inpatient On 28 units subcu insulin daily at home Qualifiers: Diabetes mellitus type: type 2 Diabetes mellitus shelter insulin use: with shelter use (3) HTN (hypertension): Impression: Holding home felodipine, losartan/HCTZ, metoprololIn setting of recent stroke Plan to restart these meds tomorrow Qualifiers: Hypertension type: primary hypertension Qualified Code(s): I10 - Essential (primary) hypertension (4) HLD (hyperlipidemia): Impression: Continue home statin or our formulary equivalent Qualifiers: Hyperlipidemia type: unspecified Qualified Code(s): E78.5 - Hyperlipidemia, unspecified
[2024-07-28 12:35] LABS: ESTIMATED AVERAGE GLUCOSE 157 mg/dL (70-100); HEMOGLOBIN A1c% 7.1 % (4.27-6.07)
[2024-07-28] MEDS: INSULIN GLARGINE-YFGN 300 UNIT/3 ML PEN SUBQ SCH (14:57)
[2024-07-28] MEDS: INSULIN LISPRO 300 UNIT/3 ML PEN SUBQ SCH ×2 (17:42→17:47)
--- NOTE | 2024-07-28 17:43 | PHARMACY PROGRESS NOTE ---
Best Possible Medication History Admit Date and Time: 07/27/24 1719 Home Medications Medication Instructions Recorded Confirmed Type glipizide 5 mg tablet 5 mg PO BID 09/01/13 07/28/24 History clopidogrel 75 mg tablet 75 mg PO DAILY 04/09/22 07/28/24 History cholecalciferol (vitamin D3) 50 50 mcg PO DAILY 07/28/24 07/28/24 History mcg (2,000 unit) capsule cilostazol 100 mg tablet 100 mg PO BID 07/28/24 07/28/24 History felodipine 10 mg tablet,extended 10 mg PO DAILY 07/28/24 07/28/24 History release 24 hr metformin 500 mg tablet 500 mg PO TID 07/28/24 07/28/24 History metoprolol succinate 50 mg 50 mg PO BID 07/28/24 07/28/24 History tablet,extended release 24 hr nitroglycerin 0.4 mg sublingual 0.4 mg sublingual Q5M 07/28/24 07/28/24 History tablet pantoprazole 40 mg tablet,delayed 40 mg PO DAILY 07/28/24 07/28/24 History release rosuvastatin 20 mg tablet 20 mg PO QPM 07/28/24 07/28/24 History semaglutide 1 mg/dose (4 mg/3 mL) 1 mg subcut OAW 07/28/24 07/28/24 History subcutaneous pen injector (Ozempic) Processed by: Pharmacy (Medication Reconciliation completed by Forensic Structural EngineerSuly) Medications reviewed in ED?: No Medication History completed: Yes Patient Interview: Completed Secondary Source(s): Written medication list, Spouse/Significant other (spouse was unsure of which medications and brought in printed medication list, however, looks to be possibly outdated from [facility]), Pharmacy records (losartan-hctz was on list, but called [facility] and they have not filled it since 2021, removed from list. Same with potassium. ) and Insurance records [facility] Statement: As the person ultimately responsible for medication therapy, providers are able to order a medication from an existing home medication list in [facility] via the "Reconcile Routine" prior to Confirmation of that medication by it application support analyst. Such practice is discouraged except when the physician, in their clinical judgment, deems that a medical need exists for a medication without regard to previous use.
--- NOTE | 2024-07-28 18:01 | PT Plan of Care ---
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 She has a history of HTN, diabetes, and s/p TAVR. She presents mildly hypoverbal and distracted but has the ability to answer occasionally, her was room and able to report on home environment and PLOF. They report living in a single leveled house with 2 steps to enter (spouse plans on building ramp), walk in shower w/ seat, and bathroom w/ handrails. During eval pt occasionally answered in short 1-2 word responses. 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 Her transfer supine to EOB MinAx1 and when she sits at EOB she requires frequent verbal cueing to sit straight and prevent retropulsion. STS MinAx1 with FWW, she showed impulsivity by standing up before being cued. She amb around her bed for about 12 ft MinAx1 with FWW with unsteady ataxic gait, increased forward flexion that leads to a right deviation with FWW; pt is high fall risk per Tinetti score (12/28). She required frequent cueing for safe management and speed using FWW. Pt lacks insight to mobility but was receptive to cueing and has good rehab potential. Patient will benefit from skilled PT due to and limited mobility. When medically cleared PT recommends discharge to SNF. GOALS Improve supine to sit to:: Independent Improve sit to stand to:: Modified Independent Improve pivot transfer ability to:: Modified Independent Improve sit to supine to:: Independent Improve gait ability to:: SBA Advance Assistive Device to:: Front Wheeled Walker Increase distance walked to (in feet):: 20 Improve Sitting Balance to:: Good PLAN Frequency: 1-2x/day Duration: Until goals are met DISCHARGE RECOMMENDATIONS Discharge Location: Intermediate Facility Support/Services Needed: With assist DC Equipment Recommended: Front wheeled walker Transport Needs at Discharge: Rebecca Other: BLS due to poor trunk control
[2024-07-29 06:08] LABS: BASOPHILS # (AUTO) 0.1 10^3/uL (0.0-0.1); BASOPHILS % (AUTO) 0.3 %; EOSINOPHILS # (AUTO) 0.2 10^3/uL (0.0-0.7); EOSINOPHILS % (AUTO) 1.5 %; HCT - HEMATOCRIT 38.3 % (37.0-47.0); HGB - HEMOGLOBIN 12.7 g/dL (12.0-16.0); LYMPHOCYTES # (AUTO) 2.1 10^3/uL (1.5-3.5); MEAN CORPUSCULAR HEMOGLOBIN 28.8 pg (27.0-31.0); MEAN CORPUSCULAR HGB CONC 33.2 g/dL (32.0-36.0); MEAN CORPUSCULAR VOLUME 86.8 fL (81.0-99.0); MEAN PLATELET VOLUME 12.1 fL (7.9-10.8); MONOCYTES % (AUTO) 6.5 %; NEUTROPHILS # (AUTO) 11.7 10^3/uL (1.5-6.6); NEUTROPHILS % (AUTO) 77.4 %; PLT - PLATELET COUNT 232 10^3/uL (130-450); RED BLOOD COUNT 4.41 10^6/uL (4.20-5.40); RED CELL DISTRIBUTION WIDTH 13.2 % (12.0-15.0); WHITE BLOOD COUNT 15.1 x10^3/uL (4.8-10.8)
[2024-07-29 06:14] LABS: CALCIUM 9.7 mg/dL (8.5-10.3); CREATININE 1.1 mg/dL (0.6-1.3); POTASSIUM 3.7 mmol/L (3.5-4.5)
[2024-07-29] MEDS: amLODIPine 5 MG TABLET PO SCH (08:16)
[2024-07-29] MEDS: PANTOPRAZOLE 40 MG TABLET PO SCH (08:16)
[2024-07-29] MEDS: CHOLECALCIFEROL 25 MCG TABLET PO SCH (08:16)
[2024-07-29] MEDS: METOPROLOL SUCCINATE 50 MG TABLET PO SCH (08:16)
--- NOTE | 2024-07-29 09:01 | PROVIDER PROGRESS NOTE ---
Subjective Prog Note Date Prog Note Date: 07/29/24 Subjective Pt reports feeling: No change Current Medications Current Medications Current Medications: Current Medications Generic Name Dose Route Start Last Admin Trade Name Freq PRN Reason Stop Dose Admin Acetaminophen 650 mg 07/27/24 18:39 Acetaminophen 325 Mg Tablet PO Q4HR PRN Pain 1 to 4, or Fever Amlodipine Besylate 10 mg 07/29/24 09:00 07/29/24 08:16 Amlodipine 5 Mg Tablet PO 10 mg DAILY RAHUL Administration Aspirin 81 mg 07/28/24 09:00 07/29/24 08:15 Aspirin Chew 81 Mg Tablet PO 81 mg DAILY RAHUL Administration Atorvastatin Calcium 80 mg 07/27/24 21:00 07/28/24 21:47 Atorvastatin 40 Mg Tablet PO 80 mg QPM RAHUL Administration Cholecalciferol 50 mcg 07/29/24 09:00 07/29/24 08:16 Cholecalciferol 25 Mcg Tablet PO 50 mcg DAILY RAHUL Administration Cilostazol 100 mg 07/29/24 09:00 Cilostazol 100 Mg Tablet PO BID RAHUL Clopidogrel Bisulfate 75 mg 07/28/24 09:00 07/29/24 08:16 Clopidogrel 75 Mg Tablet PO 75 mg DAILY RAHUL Administration Enoxaparin Sodium 40 mg 07/28/24 09:00 07/29/24 08:15 Enoxaparin 40 Mg/0.4 Ml Syringe SUBQ 40 mg DAILY RAHUL Administration Insulin Glargine-yfgn 28 unit 07/28/24 13:00 07/29/24 08:24 Insulin Glargine-Yfgn 300 Unit/3 Ml Pen SUBQ 28 unit DAILY RAHUL Administration Insulin Human Lispro 2 - 10 unit 07/28/24 17:30 07/29/24 07:45 Insulin Lispro 300 Unit/3 Ml Pen SUBQ Not Given 0800,1200,1700,2100 [facility] Protocol Labetalol HCl 10 mg 07/27/24 18:39 Labetalol 20 Mg/4 Ml Syringe IVP Q10M PRN SBP >220 OR DBP>120 Losartan Potassium 50 mg 07/28/24 09:00 07/29/24 08:19 Losartan 50 Mg Tablet PO 50 mg DAILY RAHUL Administration Metoprolol Succinate 50 mg 07/29/24 09:00 07/29/24 08:16 Metoprolol Succinate 50 Mg Tablet PO 50 mg BID RAHUL Administration Multivitamins 1 tab 07/28/24 08:00 07/29/24 08:16 Multivitamin Tablet PO 1 tab DAILYWM RAHUL Administration Ondansetron HCl 4 mg 07/27/24 18:39 Ondansetron Odt 4 Mg Tablet TL Q6HR PRN Nausea / Vomiting Ondansetron HCl 4 mg 07/27/24 18:39 Ondansetron 4 Mg/2 Ml Vial IVP Q6HR PRN Nausea / Vomiting Oxycodone HCl 5 mg 07/27/24 18:39 Oxycodone 5 Mg Tablet PO Q4HR PRN Pain 5 to 7 Pantoprazole Sodium 40 mg 07/29/24 09:00 07/29/24 08:16 Pantoprazole 40 Mg Tablet PO 40 mg DAILY RAHUL Administration Sodium Chloride 10 ml 07/27/24 18:39 Sodium Chloride Flush 0.9% 10 Ml Syringe IVP PRN PRN NEEDED PER PROVIDER ORDERS Sodium Chloride 10 ml 07/28/24 01:00 07/29/24 08:19 Sodium Chloride Flush 0.9% 10 Ml Syringe IVP 10 ml 0100,0900,1700 RAHUL Administration Objective Vital Signs/Intake & Output Reviewed Vital Signs: Yes Vital Signs: Vital Signs x48h Temp Pulse Resp BP Pulse Ox 07/29/24 08:46 36.5 C 117 H 19 186/98 H 98 07/29/24 03:55 36.6 C 116 H 20 180/92 H 96 Intake & Output: Intake & Output 07/27/24 07/28/24 07/29/24 07/30/24 05:59 05:59 05:59 05:59 Intake Total 460 / 460 240 / 240 Output Total 1000 / 1000 975 / 975 Balance -1000 / -1000 -515 / -515 240 / 240 Weight (kg) 66.5 kg Objective General Appearance: positive No acute distress and Alert Eyes Bilateral: positive Normal inspection and PERRL ENT: positive ENT inspection nml Neck: positive Nml inspection Respiratory: positive Chest non-tender Cardiovascular: positive Regular rate & rhythm Abdomen: positive Non-tender Back: positive Nml inspection Skin: positive Color nml Extremities: positive Non-tender Neurologic/Psychiatric: positive Oriented x3 and Facial droop (Very mild facial droop noted on the right side); negative Motor nml (Some right-sided weakness, strength 4/5) Lab Results 07/29/24 05:44 07/29/24 05:44 Other Labs: Lab Results x24hrs 07/29/24 07/29/24 07/28/24 Range/Units 07:20 05:44 20:50 WBC 15.1 H (4.8-10.8) x10^3/uL RBC 4.41 (4.20-5.40) 10^6/uL Hgb 12.7 (12.0-16.0) g/dL Hct 38.3 (37.0-47.0) % MCV 86.8 (81.0-99.0) fL MCH 28.8 (27.0-31.0) pg MCHC 33.2 (32.0-36.0) g/dL RDW 13.2 (12.0-15.0) % Plt Count 232 (130-450) 10^3/uL MPV 12.1 H (7.9-10.8) fL Neut # (Auto) 11.7 H (1.5-6.6) 10^3/uL Lymph # (Auto) 2.1 (1.5-3.5) 10^3/uL Hays # (Auto) 1.0 (0.0-1.0) 10^3/uL Eos # (Auto) 0.2 (0.0-0.7) 10^3/uL Baso # (Auto) 0.1 (0.0-0.1) 10^3/uL Absolute Nucleated RBC 0.00 x10^3/uL Nucleated RBC % 0.0 /100WBC Sodium 139 (135-145) mmol/L Potassium 3.7 (3.5-4.5) mmol/L Chloride 105 (101-111) mmol/L Carbon Dioxide 26 (21-32) mmol/L Anion Gap 8.0 (6-13) BUN 21 H (6-20) mg/dL Creatinine 1.1 (0.6-1.3) mg/dL Estimated GFR (MDRD) 48 L (>89) Glucose 168 H (74-104) mg/dL POC Whole Bld Glucose 126 187 (70-100) mg/dL Estimat Average Glucose (70-100) mg/dL Hemoglobin A1c % (4.27-6.07) % Calcium 9.7 (8.5-10.3) mg/dL 11/20/24 11/20/24 11/20/24 Range/Units 16:41 11:31 04:29 WBC (4.8-10.8) x10^3/uL RBC (4.20-5.40) 10^6/uL Hgb (12.0-16.0) g/dL Hct (37.0-47.0) % MCV (81.0-99.0) fL MCH (27.0-31.0) pg MCHC (32.0-36.0) g/dL RDW (12.0-15.0) % Plt Count (130-450) 10^3/uL MPV (7.9-10.8) fL Neut # (Auto) (1.5-6.6) 10^3/uL Lymph # (Auto) (1.5-3.5) 10^3/uL Hays # (Auto) (0.0-1.0) 10^3/uL Eos # (Auto) (0.0-0.7) 10^3/uL Baso # (Auto) (0.0-0.1) 10^3/uL Absolute Nucleated RBC x10^3/uL Nucleated RBC % /100WBC Sodium (135-145) mmol/L Potassium (3.5-4.5) mmol/L Chloride (101-111) mmol/L Carbon Dioxide (21-32) mmol/L Anion Gap (6-13) BUN (6-20) mg/dL Creatinine (0.6-1.3) mg/dL Estimated GFR (MDRD) (>89) Glucose (74-104) mg/dL POC Whole Bld Glucose 230 249 (70-100) mg/dL Estimat Average Glucose 157 H (70-100) mg/dL Hemoglobin A1c % 7.1 H (4.27-6.07) % Calcium (8.5-10.3) mg/dL Diagnostic Imaging Diagnostic Imaging Results: positive Final report reviewed Diagnostic Imaging Comments: CTA head/neck with occlusion of right P3 segment Assessment/Plan Problem List (1) Cerebrovascular accident (CVA): Impression: DAPT x 3 weeks Already on Plavix at home Out of permissive hypertension window, restarting home regimen MRI brain pending Echo with EF 55 to 60%, mild mitral regurgitation, no atrial shunt PT/OT Recommending SNF Qualifiers: CVA mechanism: occlusion Laterality of affected vessel: right P recerebral and cerebral artery: posterior cerebral artery Qualified Code(s): I 63.531 - Cerebral infarction due to unspecified occlusion or stenosis of right posterior cerebral artery (2) Diabetes: Impression: A1c 7.1 SSI Holding glipizide, Ozempic while inpatient Glucose better controlled after starting 28 units subcu Lantus yesterday Qualifiers: Diabetes mellitus terminal carman insulin use: with senior living use Diabetes mellitus type: type 2 (3) HTN (hypertension): Impression: Restarting home regimen of felodipine, losartan/HCTZ, metoprolol as she is now 2 days post stroke Qualifiers: Hypertension type: primary hypertension Qualified Code(s): I10 - Essential (primary) hypertension (4) HLD (hyperlipidemia): Impression: Continue home statin or our formulary equivalent Qualifiers: Hyperlipidemia type: unspecified Qualified Code(s): E78.5 - Hyperlipidemia, unspecified
[2024-07-29] MEDS: cilostazoL 100 MG TABLET PO SCH (09:44)
--- NOTE | 2024-07-29 13:18 | OT Plan of Care ---
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 MD orders permissive hypertension 220/120. A&O to self only - date, location, situation with choices and time. Follows 1 step simple commands 90% of the time. Presenting with R sided weakness and decreased coordination compared to L. Performed sit to stand and ambulation 5ft to/from bathroom using 2WW MIN-MOD A with cues for safety. Pt currently TOÑO UB, MOD A LB dressing with full set up. Overall presenting with R sided weakness, decreased motor planning, decreased activity tolerance, and ADL status impairing safety and indp. Pt will benefit from cont OT servives 5x/wk during acute stay. PATIENT/FAMILY GOALS Patient/Family Goals: Return home s/p rehab -Activities of Daily Living Improve Upper Extremity Dressing to:: Independent Improve Lower Extremity Dressing to:: Independent Improve Bathing to:: Modified Independent OT Inpatient Plan PLAN Treatment Frequency: 1x/day Duration: Until discharge -Discharge Recommendations Discharge Location: Alf Facility Transport Needs at Discharge: Rebecca
[2024-07-29] MEDS: LORazepam 0.5 MG TABLET PO ONE (16:48)
--- NOTE | 2024-07-29 18:43 | MRI Report ---
PROCEDURE: MRI Brain WO INDICATIONS: stroke TECHNIQUE: Noncontrast axial T1 spin echo, axial T2 fast spin echo, sagittal and axial FLAIR, coronal T2 fast sp in echo, axial gradient echo, axial diffusion and ADC through the brain. COMPARISON: CT 07/27/2024 FINDINGS: Image quality: Excellent. CSF Spaces: Basal cisterns are patent. No extra-axial fluid collections. Ventricles are normal in size and shape. Brain: No intracranial masses or hemorrhage. Griffiths/white matter interface is normal. Brainstem appe ars normal. Diffusion-weighted imaging demonstrates multiple infarcts in the brainstem, bilateral cer ebellum, and right basal ganglia. These demonstrate dark signal on ADC, and hyperintense signal on T2 -weighted imaging. Skull and face: Calvarium has normal marrow signal. Orbits appear normal. Sinuses: Sinuses and mastoids are clear. IMPRESSION: Acute, multifocal infarct of the bilateral cerebellum, brainstem and right basal ganglia. Reviewed by: Nico Bedolla MD on 07/29/2024 6:42 PM [facility] [[email or web address]] Approved by: Nico Bedolla MD on 07/29/2024 6:42 PM [facility] [[email or web address]] Station ID: [id number]
[2024-07-30 05:47] LABS: BASOPHILS # (AUTO) 0.1 10^3/uL (0.0-0.1); BASOPHILS % (AUTO) 0.5 %; EOSINOPHILS # (AUTO) 0.2 10^3/uL (0.0-0.7); EOSINOPHILS % (AUTO) 1.7 %; HCT - HEMATOCRIT 37.9 % (37.0-47.0); HGB - HEMOGLOBIN 12.1 g/dL (12.0-16.0); LYMPHOCYTES # (AUTO) 2.4 10^3/uL (1.5-3.5); MEAN CORPUSCULAR HEMOGLOBIN 28.1 pg (27.0-31.0); MEAN CORPUSCULAR HGB CONC 31.9 g/dL (32.0-36.0); MEAN CORPUSCULAR VOLUME 88.1 fL (81.0-99.0); MEAN PLATELET VOLUME 11.6 fL (7.9-10.8); MONOCYTES # (AUTO) 1.1 10^3/uL (0.0-1.0); MONOCYTES % (AUTO) 7.5 %; NEUTROPHILS # (AUTO) 10.4 10^3/uL (1.5-6.6); NEUTROPHILS % (AUTO) 72.9 %; PLT - PLATELET COUNT 227 10^3/uL (130-450); RED CELL DISTRIBUTION WIDTH 13.2 % (12.0-15.0); WHITE BLOOD COUNT 14.2 x10^3/uL (4.8-10.8)
[2024-07-30 06:05] LABS: CALCIUM 9.9 mg/dL (8.5-10.3); CREATININE 0.9 mg/dL (0.6-1.3); POTASSIUM 3.7 mmol/L (3.5-4.5)
[2024-07-30 10:42] VITALS: O2SAT 99
--- NOTE | 2024-07-30 10:43 | Discharge Summary ---
"Discharge Summary Admit Date: 07/27/24 Discharge Date: 07/30/24 Discharging Provider: Ramiro Rajan NP Primary Care Provider: Danielle Demarco Code Status: Do Not Attempt Resuscitation Discharge Facility [facility]: [facility] DIAGNOSES Admission Diagnoses: CVA Diabetes Hypertension Hyperlipidemia Discharge Diagnoses with Status of Each Condition: CVAactive Diabetes, Type II with insulin usechronic Hypertensionchronic Hyperlipidemiachronic UTIactive HPI History of Present Illness: 79-year-old female history of diabetes, hypertension, status post TAVR, on Plavix presented with slurred speech, right facial droop, right-sided weakness. She was evaluated by teleneurology, and underwent CTA of the head and neck which showed a right P3 HOT WORT SETTLER clot.Neurology felt this was not an intervenable lesion, so hospitalist was contacted for admission for further stroke workup CONSULTS | PROCEDURES Procedures: MRI brain multifocal infarct involving bilateral cerebellum, brainstem as well as right basal ganglia Echocardiogram with trace mitral regurgitation HOSPITAL COURSE Hospital Course: She was admitted to the hospital and placed on DAPT as per teleneurology recommendations as well as high-dose statin. Echo, MRI obtained. She was evaluated by physical therapy, and recommendation was made for facility placement for ongoing rehab needs. Today, she is being discharged to [facility]. She has been experiencing some agitation at night, and does have an elevated WBC today. UA on date of discharge indicates she has a UTI. I am giving her a one-time dose of fosfomycin prior to discharge ALLERGIES Allergies Allergy/AdvReac Type Severity Reaction Status Date / Time mercury (elemental) (Mercury Allergy Unknown Verified 07/27/24 16:47 (Elemental)) MEDICATIONS Ambulatory Orders Medication Instructions Recorded Confirmed glipizide 5 mg tablet 5 mg PO BID 09/01/13 07/28/24 clopidogrel 75 mg tablet 75 mg PO DAILY 04/09/22 07/28/24 cholecalciferol (vitamin D3) 50 50 mcg PO DAILY 07/28/24 07/28/24 mcg (2,000 unit) capsule cilostazol 100 mg tablet 100 mg PO BID 07/28/24 07/28/24 felodipine 10 mg tablet,extended 10 mg PO DAILY 07/28/24 07/28/24 release 24 hr metformin 500 mg tablet 500 mg PO TID 07/28/24 07/28/24 metoprolol succinate 50 mg 50 mg PO BID 07/28/24 07/28/24 tablet,extended release 24 hr nitroglycerin 0.4 mg sublingual 0.4 mg sublingual Q5M 07/28/24 07/28/24 tablet pantoprazole 40 mg tablet,delayed 40 mg PO DAILY 07/28/24 07/28/24 release semaglutide 1 mg/dose (4 mg/3 mL) 1 mg subcut OAW 07/28/24 07/28/24 subcutaneous pen injector (Ozempic) aspirin 81 mg chewable tablet 81 mg PO DAILY 30 days #30 tabs 07/30/24 atorvastatin 40 mg tablet 80 mg (2 x 40 mg) PO QPM 30 days 07/30/24 #60 tabs losartan 50 mg tablet 50 mg PO DAILY 30 days #30 tabs 07/30/24 multivitamin with folic acid 400 1 tab PO DAILYWM 30 days #30 tabs 07/30/24 mcg tablet (Thera) PHYSICAL EXAM AT DISCHARGE General Appearance: positive No acute distress (Slept through most of my visit as I talked to the . She did wake up and recognize me and say hi and then went back to sleep.) Eyes Bilateral: positive Normal inspection ENT: positive ENT inspection nml Neck: positive Nml inspection Respiratory: positive Chest non-tender and No respiratory distress Cardiovascular: positive Regular rate & rhythm Peripheral Pulses: positive 2+ Abdomen: positive Non-tender Back: positive Nml inspection Skin: positive Color nml Extremities: positive Non-tender Neurologic/Psychiatric: positive Other (Orientation waxes and wanes, better during the day. Still with right-sided weakness and facial droop); negative Motor nml LABS 07/30/24 05:39 07/30/24 05:39 DIAGNOSTIC IMAGING Diagnostic Imaging Results: Final report reviewed Diagnostic Imaging Results Comments: MRI brain multifocal infarct involving bilateral cerebellum, brainstem as well as right basal ganglia Echocardiogram trace mitral regurgitation SEPSIS Current Stage of Sepsis: Ruled out FOLLOW UP Follow Up: With PCP TIME SPENT Time Spent in Discharge (Minutes): 40 Discharge Plan Discharge Patient Disposition: 62 IRF DC/Xfer Condition: Serious Prescriptions: New losartan 50 mg Tablet 50 mg PO DAILY 30 Days Qty: 30 0RF atorvastatin 40 mg Tablet 80 mg PO QPM 30 Days Qty: 60 0RF aspirin 81 mg Tablet,Chewable 81 mg PO DAILY 30 Days Qty: 30 0RF multivitamin with folic acid [Thera] 400 mcg Tablet 1 tab PO DAILYWM 30 Days Qty: 30 0RF Continued glipizide 5 MG tablet 5 mg PO BID clopidogrel 75 MG tablet 75 mg PO DAILY metformin 500 mg tablet 500 mg PO TID Patient Comments: TAKE ONE TABLET BY MOUTH THREE TIMES DAILY with meals pantoprazole 40 mg tablet,delayed release (DR/EC) 40 mg PO DAILY Patient Comments: TAKE ONE TABLET BY MOUTH ONE TIME DAILY felodipine 10 mg tablet extended release 24 hr 10 mg PO DAILY Patient Comments: TAKE ONE TABLET BY MOUTH ONE TIME DAILY cholecalciferol (vitamin D3) 50 mcg (2,000 unit) capsule 50 mcg PO DAILY nitroglycerin 0.4 mg tablet, sublingual 0.4 mg sublingual Q5M Rx Instructions: do not exceed 3 doses per episode metoprolol succinate 50 mg tablet extended release 24 hr 50 mg PO BID cilostazol 100 mg tablet 100 mg PO BID Patient Comments: TAKE ONE TABLET BY MOUTH TWICE DAILY Ozempic 1 mg/dose (4 mg/3 mL) pen injector 1 mg SUBCUT OAW Discontinued rosuvastatin 20 mg tablet 20 mg PO QPM Patient Comments: TAKE ONE TABLET BY MOUTH ONE TIME DAILY Activity Restrictions: Activity as Tolerated Diet: Soft Health Concerns: You are a 79-year-old female with history of diabetes, hypertension, TAVR who presented to the emergency department with trouble speaking, right facial droop, right-sided weakness. You were admitted to the hospital for stroke workup.MRI brain showed acute, multifocal infarct of the bilateral cerebellum, brainstem, right basal ganglia. Echocardiogram showed some mitral regurgitation. You are seen by physical therapy, and recommendations were made for you to be sent to a rehab facility. Today, you are being sent to [facility] [place]. I would like you to continue dual antiplatelet with aspirin and Plavix for at least 3 weeks, and then as directed by your PCP Plan of Treatment: Dual antiplatelet High-dose Lipitor Rehab/physical therapy Print Language: Zambian Patient Instructions: Stroke Dc Stand Alone Forms: SNF Discharge, PCP List"
[2024-07-30 10:55] LABS: BILIRUBIN,URINE NEGATIVE (NEGATIVE); GLUCOSE, URINE (UA) NEGATIVE (NEGATIVE); KETONES,URINE (UA) NEGATIVE (NEGATIVE); LEUKOCYTE ESTERASE, URINE TRACE (NEGATIVE); NITRITE,URINE NEGATIVE (NEGATIVE); OCCULT BLOOD,URINE LARGE (NEGATIVE); PH,URINE 5.5 PH (5.0-7.5); PROTEIN,URINE TRACE mg/dL (NEGATIVE); UROBILINOGEN,URINE 0.2 (NORMAL) E.U./dL (NORMAL)
[2024-07-30 11:01] LABS: CLARITY,URINE CLEAR (CLEAR)
[2024-07-30 11:25] LABS: SQUAMOUS EPITHELIAL CELL,UR RARE Squamous (<= Few)
[2024-07-30 11:26] LABS: AMORPHOUS SEDIMENT,UR Few /LPF; BACTERIA,URINE Moderate /HPF (None Seen); MUCUS,URINE Few Strands
[2024-07-30] MEDS: FOSFOMYCIN TROMETHAMINE 3 GM PACKET PO ONE (11:30)
== END 2024-07-30 12:20 | DRG 65 ==
LOC: ED 16:25 → MS2 17:19
PROVIDERS: ADMIT Physician Assistant Medical; ATTEND Specialist
DX: I63.531 Cerebral infarction due to unspecified occlusion or stenosis of right posterior cerebral artery; T38.3X6A Underdosing of insulin and oral hypoglycemic [antidiabetic] drugs, initial encounter; G81.91 Hemiplegia, unspecified affecting right dominant side; R47.81 Slurred speech; Z79.899 Other long term (current) drug therapy; R29.705 NIHSS score 5; R29.810 Facial weakness; Z96.653 Presence of artificial knee joint, bilateral; Z79.02 Long term (current) use of antithrombotics/antiplatelets; N39.0 Urinary tract infection, site not specified; E78.5 Hyperlipidemia, unspecified; I63.9 Cerebral infarction, unspecified; Z66 Do not resuscitate; Z79.85 Long-term (current) use of injectable non-insulin antidiabetic drugs; I34.0 Nonrheumatic mitral (valve) insufficiency; E11.9 Type 2 diabetes mellitus without complications; Z79.84 Long term (current) use of oral hypoglycemic drugs; I25.2 Old myocardial infarction; Z95.2 Presence of prosthetic heart valve; Z79.4 Long term (current) use of insulin; Z79.82 Long term (current) use of aspirin; I10 Essential (primary) hypertension; R47.1 Dysarthria and anarthria